=== PATIENT | female | born 1970 | race Caucasian/White ===

== ENCOUNTER → 2016-10-17 | Outpatient (CLI) | payer BC | LOC: MW.LAB 12:27 | PROVIDERS: ATTEND Internal Medicine | DX: I12.9 Hypertensive chronic kidney disease with stage 1 through stage 4 chronic kidney disease, or unspecified chronic kidney disease (principal); N18.3 Chronic kidney disease, stage 3 (moderate); D63.1 Anemia in chronic kidney disease; R80.9 Proteinuria, unspecified | CPT/HCPCS: 36415; 80069; 81001; 82570; 82728; 83550; 84156; 85025 ==

== ENCOUNTER 2017-07-10 06:47 | Emergency (ER) | payer BC ==
[2017-07-10 17:45] VITALS: BP 138/86
--- NOTE | 2017-07-10 18:19 | CR ---
EXAMINATION: Portable chest radiograph. HISTORY: Chest pain. FINDINGS: The trachea is midline. The cardiomediastinal silhouette is within normal limits. No pulmonary infilt rates, effusions or pneumothorax. Osseous structures appear unremarkable. IMPRESSION: No acute cardiopulmonary process.
== END 2017-07-10 09:21 | disposition home or self-care (01) ==
LOC: MW.ED 06:47
DX: R07.89 Other chest pain (principal); R10.9 Unspecified abdominal pain; I10 Essential (primary) hypertension; E11.9 Type 2 diabetes mellitus without complications; E78.00 Pure hypercholesterolemia, unspecified; Z79.4 Long term (current) use of insulin; Z79.82 Long term (current) use of aspirin; Z79.899 Other long term (current) drug therapy; Z87.891 Personal history of nicotine dependence; Z91.19 Patient's noncompliance with other medical treatment and regimen
CPT/HCPCS: 36415; 71010; 71010-26; 80053; 81001; 82009; 82553; 82803; 84484; 85025; 85379; 85610; 96361; 96374; 99283; 99285-25

== ENCOUNTER 2017-07-10 13:58 | Emergency (ER) | payer BC ==
[2017-07-10 14:14] VITALS: BP 133/98
--- NOTE | 2017-07-10 17:38 | EDM.PDOC ---
ED HPI GENERAL MEDICAL PROBLEM - General Chief Complaint: Abdominal Pain Stated Complaint: ABDOMINAL PAIN Time Seen by Provider: 07/10/17 14:10 - History of Present Illness INITIAL COMMENTS - FREE TEXT/NARRATIVE: HISTORY AND PHYSICAL: History of present illness: Patient's 47-year-old female was seen earlier today with a variety of nonspecific complaints including atypical chest pain she was discharged and referred to diabetic clinic in which they established a mechanism to facilitate requiring insulin for her diabetes up till now she's been medically noncompliant that she attributes to financial duress she returns now requesting pain medicine she again has a variety of nonspecific complaints and will shift from 1 system to another during discourse. Is been no fever chills nausea vomiting or other concern Review of systems: As per history of present illness and below otherwise all systems reviewed and negative. Past medical history: As per history of present illness and as reviewed below otherwise noncontributory. Surgical history: As per history of present illness and as reviewed below otherwise noncontributory. Social history: No reported history of drug or alcohol abuse. Family history: As per history of present illness and as reviewed below otherwise noncontributory. Physical exam: HEENT: Atraumatic, normocephalic, pupils reactive, negative for conjunctival pallor or scleral icterus, mucous membranes moist, throat clear, neck supple, nontender, trachea midline. Lungs: Clear to auscultation, breath sounds equal bilaterally, chest nontender. Heart: S1S2, regular, negative for clicks, rubs, or JVD. Abdomen: Soft, nondistended, nontender. Negative for masses or hepatosplenomegaly. Negative for costovertebral tenderness. Pelvis: Stable nontender. Genitourinary: Deferred. Rectal: Deferred. Extremities: Atraumatic, negative for cords or calf pain. Neurovascular unremarkable. Neuro: Awake, alert, oriented. Cranial nerves II through XII unremarkable. Cerebellum unremarkable. Motor and sensory unremarkable throughout. Exam nonfocal. Diagnostics: None Therapeutics: None Impression: #1 history of atypical chest pain #2 nonspecific abdominal pain #3 medical noncompliance #4 history of diabetes Definitive disposition and diagnosis as appropriate pending reevaluation and review of above. Abdominal Pain Pain Score (Numeric/FACES): 10 - Related Data Allergies Allergy/AdvReac Type Severity Reaction Status Date / Time No Known Allergies Allergy Verified 07/10/17 14:11 Home Meds: Home Meds Insulin Lispro [Humalog Kwikpen U-100] 20 units SUBCUT TIDAC 10/23/13 [History] Insulin Glargine,Hum.Rec.Anlog [Rennyuhali Sampsonostar] 50 unit SUBCUT BID 05/31/16 [ History] Lisinopril 20 mg PO DAILY 05/31/16 [History] Pravastatin Sodium 80 mg PO BEDTIME 05/31/16 [History] Aspirin [Sruthi Chewable] 81 mg PO Q2D@0800 09/06/16 [History] Gemfibrozil [Lopid] 600 mg PO BIDMEALS 09/06/16 [History] Glimepiride [Amaryl] 4 mg PO WITHBREAKFAST 09/06/16 [History] Levothyroxine [Levothyroxine] 175 mcg PO ACBREAKFAST 09/06/16 [History] [place]-3/DHA/Epa/Fish Oil [[place]-3 Fish Oil 1,000 MG Sfgl] 2 gm PO BID 09/06/16 [ History] Venlafaxine [Effexor XR] 75 mg PO DAILY 09/06/16 [History] traZODone 50 mg PO DAILY PRN 09/06/16 [History] Past Medical History HEENT History: Reports: Impaired Vision Cardiovascular History: Reports: High Cholesterol, Hypertension, Other (See Below) Other Cardiovascular History: SVT Gastrointestinal History: Reports: Diverticulosis, Pancreatitis Genitourinary History: Reports: Renal Disease, Other (See Below) Other Genitourinary History: 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: Musculoskeletal History: Reports: Arthritis Neurological History: Reports: Other (See Below) Other Neuro History: on and off headaches Psychiatric History: Reports: Anxiety, Depression Other Psychiatric History: January 01 2016 Endocrine/Metabolic History: Reports: Diabetes, Type II Hematologic History: Reports: Anemia - Infectious Disease History Infectious Disease History: Reports: Chicken Pox - Past Surgical History Female Surgical History: Reports: Section, Other (See Below) Social & Family History - Family History Family Medical History: Noncontributory HEENT: Reports: Impaired Vision Cardiac: Reports: CAD, Hypertension OBGYN: Reports: Endocrine/Metabolic: Reports: Diabetes, type II Oncologic: Reports: Other (See Below) Other Oncologic Family History: cant remember what type of cancer - Tobacco Use Smoking Status *Q: Former Smoker Years of Tobacco use: 15 Used Tobacco, but Quit: No Second Hand Smoke Exposure: No - Caffeine Use Caffeine Use: Reports: None - Alcohol Use Days Per Week of Alcohol Use: 0 - Recreational Drug Use Recreational Drug Use: No ED ROS GENERAL - Review of Systems Review Of Systems: ROS reveals no pertinent complaints other than HPI. ED EXAM, GENERAL - Physical Exam Exam: See Below (See dictation) Course - Vital Signs Last Recorded V/S: Last Vital Signs Temp 36.6 C 07/10/17 14:11 Pulse 93 07/10/17 14:11 Resp 18 07/10/17 14:11 BP 133/98 H 07/10/17 14:11 Pulse Ox 97 07/10/17 14:11 Departure - Departure Time of Disposition: 14:16 Disposition: Home, Self-Care 01 Condition: Good Clinical Impression: Atypical chest pain, Abdominal pain, Medical non-compliance, History of diabetes mellitus - Discharge Information Referrals: Haris Plaza MD [Primary Care Provider] - Additional Instructions: The following information is given to patients seen in the emergency department who are being discharged to home. This information is to outline your options for follow-up care. We provide all patients seen in our emergency department with a follow-up referral. The need for follow-up, as well as the timing and circumstances, are variable depending upon the specifics of your emergency department visit. If you don't have a primary care physician on staff, we will provide you with a referral. We always advise you to contact your personal physician following an emergency department visit to inform them of the circumstance of the visit and for follow-up with them and/or the need for any referrals to a consulting specialist. The emergency department will also refer you to a specialist when appropriate. This referral assures that you have the opportunity for followup care with a specialist. All of these measure are taken in an effort to provide you with optimal care, which includes your followup. Under all circumstances we always encourage you to contact your private physician who remains a resource for coordinating your care. When calling for followup care, please make the office aware that this follow-up is from your recent emergency room visit. If for any reason you are refused follow-up, please contact the [facility] emergency department at and asked to speak to the emergency department charge nurse. [facility] [address], [place] [address] [facility] Professional [facility] [address] [place] [address], [address] [place] [address] Schedule routine appointments above with general medical clinic and general surgery follow-up pain clinic as discussed return as needed as discussed
[2017-07-11 14:24] LABS: CHLORIDE,CL 90 mmol/L (98-110)
[2017-07-11 14:26] LABS: SODIUM,NA 123 mmol/L (136-146)
== END 2017-07-10 14:32 | disposition home or self-care (01) ==
LOC: MW.ED 13:58
DX: R07.89 Other chest pain (principal); R10.9 Unspecified abdominal pain; I10 Essential (primary) hypertension; E11.9 Type 2 diabetes mellitus without complications; E78.00 Pure hypercholesterolemia, unspecified; Z79.4 Long term (current) use of insulin; Z79.82 Long term (current) use of aspirin; Z79.899 Other long term (current) drug therapy; Z87.891 Personal history of nicotine dependence; Z91.19 Patient's noncompliance with other medical treatment and regimen
CPT/HCPCS: 36415; 80053; 81001; 82009; 82553; 82803; 84484; 85025; 85379; 85610; 99283

== ENCOUNTER 2019-03-27 11:12 | Emergency (ER) | payer BC ==
[2019-03-27] MEDS ORDERED: Sodium Chloride 0.9% 1,000 ML IV ONE (11:21)
[2019-03-27] MEDS ORDERED: Sodium Chloride 0.9% 10 ML Syringe FLUSH PRN (11:21)
[2019-03-27] MEDS ORDERED: Sodium Chloride 0.9% 2.5 ML Syringe FLUSH PRN (11:21)
--- NOTE | 2019-03-27 11:22 | EDM.PDOC ---
ED HPI GENERAL MEDICAL PROBLEM - General Chief Complaint: Abdominal Pain Stated Complaint: ABD PAIN Time Seen by Provider: 03/27/19 11:22 Source of Information: Reports: Patient History Limitations: Reports: No Limitations - History of Present Illness INITIAL COMMENTS - FREE TEXT/NARRATIVE: HISTORY AND PHYSICAL: History of present illness: Patient is a 48-year-old female presents to the ED with complaint of epigastric abdominal pain. She states it started this morning after she had bent over to pick something up. She states she since has been feeling anxious like she is having a panic attack. She denies chest pain, shortness of breath, nausea, vomiting, diarrhea. She feels like it might be related to her thyroid. Past medical history significant for hypothyroidism, hypertension, hyperlipidemia, type 2 diabetes. Review of systems: As per history of present illness and below otherwise all systems reviewed and negative. Past medical history: As per history of present illness and as reviewed below otherwise noncontributory. Surgical history: As per history of present illness and as reviewed below otherwise noncontributory. Social history: No reported history of drug or alcohol abuse. Family history: As per history of present illness and as reviewed below otherwise noncontributory. Physical exam: General: Patient sitting comfortably in no acute distress and nontoxic appearing HEENT: Atraumatic, normocephalic, pupils reactive, negative for conjunctival pallor or scleral icterus, mucous membranes moist, throat clear, neck supple, nontender, trachea midline. No meningeal signs. Lungs: Clear to auscultation, breath sounds equal bilaterally, chest nontender. Heart: S1S2, regular, negative for clicks, rubs, or overt murmur. Abdomen: Epigastric and RUQ tenderness to palpation. suprapubic tenderness to palpation. Soft, nondistended. Negative for masses or hepatosplenomegaly. Negative for costovertebral tenderness. No rigidity, rebound, guarding. Pelvis: Stable nontender. Genitourinary: Deferred. Rectal: Deferred. Extremities: Atraumatic, negative for cords or calf pain. Neurovascular unremarkable. Neuro: Awake, alert, oriented. Cranial nerves II through XII unremarkable. Cerebellum unremarkable. Motor and sensory unremarkable throughout. Exam nonfocal. Notes: After labs and RUQ US, patient states her pain is more lower abdominal than upper Diagnostics: CBC, CMP, troponin, PT/INR, EKG, CXR Therapeutics: 1L NS IV GI cocktail Prescriptions: Impression: abdominal pain, UTI Plan: Drink plenty of fluids and take antibiotic as instructed Follow up with primary care provider Return to ED as needed as discussed Definitive disposition and diagnosis as appropriate pending reevaluation and review of above. Epigastric Pain Score (Numeric/FACES): 6 - Related Data Allergies Allergy/AdvReac Type Severity Reaction Status Date / Time No Known Allergies Allergy Verified 03/27/19 11:19 Home Meds: Home Meds Insulin Lispro [Humalog Kwikpen U-100] 20 units SUBCUT TIDAC 10/23/13 [History] Insulin Glargine,Hum.Rec.Anlog [Toujeo Solostar] 50 unit SUBCUT BID 05/31/16 [ History] Pravastatin Sodium 80 mg PO BEDTIME 05/31/16 [History] Glimepiride [Amaryl] 4 mg PO WITHBREAKFAST 09/06/16 [History] Levothyroxine 175 mcg PO ACBREAKFAST 09/06/16 [History] Nitrofurantoin Monohyd/M-Cryst [Macrobid 100 mg Capsule] 100 mg PO BID 7 Days # 14 capsule 03/27/19 [Rx] Past Medical History HEENT History: Reports: Impaired Vision Cardiovascular History: Reports: High Cholesterol, Hypertension, Other (See Below) Other Cardiovascular History: SVT Gastrointestinal History: Reports: Diverticulosis, Pancreatitis Genitourinary History: Reports: Renal Disease, Other (See Below) Other Genitourinary History: 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: Musculoskeletal History: Reports: Arthritis Neurological History: Reports: Other (See Below) Other Neuro History: on and off headaches Psychiatric History: Reports: Anxiety, Depression Other Psychiatric History: January 01 2016 Endocrine/Metabolic History: Reports: Diabetes, Type II Hematologic History: Reports: Anemia - Infectious Disease History Infectious Disease History: Reports: Chicken Pox - Past Surgical History Female Surgical History: Reports: Section, Other (See Below) Social & Family History - Family History Family Medical History: Noncontributory HEENT: Reports: Impaired Vision Cardiac: Reports: CAD, Hypertension OBGYN: Reports: Endocrine/Metabolic: Reports: Diabetes, type II Oncologic: Reports: Other (See Below) Other Oncologic Family History: cant remember what type of cancer - Caffeine Use Caffeine Use: Reports: None ED ROS GENERAL - Review of Systems Review Of Systems: ROS reveals no pertinent complaints other than HPI. ED EXAM, GI/ABD - Physical Exam Exam: See Below (see dictation) Course - Vital Signs Last Recorded V/S: Last Vital Signs Temp 98.7 F 03/27/19 11:22 Pulse 74 03/27/19 13:10 Resp 18 03/27/19 13:10 BP 143/92 H 03/27/19 13:10 Pulse Ox 100 03/27/19 13:10 - Orders/Labs/Meds Orders: Active Orders 24 hr Category Date Time Status Cardiac Monitoring [RC] . DIRECTED Care 03/27/19 11:21 Active EKG Documentation Completion [RC] STAT Care 03/27/19 11:21 Active Sodium Chloride 0.9% [Saline Flush] Med 03/27/19 11:21 Active 10 ml FLUSH ASDIRECTED PRN Sodium Chloride 0.9% [Saline Flush] Med 03/27/19 11:21 Active 2.5 ml FLUSH ASDIRECTED PRN Saline Lock Insert [OM.PC] Stat Oth 03/27/19 11:21 Ordered Medication Orders Sodium Chloride (Saline Flush) 10 ml FLUSH ASDIRECTED PRN PRN Reason: Keep Vein Open Sodium Chloride (Saline Flush) 2.5 ml FLUSH ASDIRECTED PRN PRN Reason: Keep Vein Open Labs: Laboratory Tests 03/27/19 03/27/19 03/27/19 Range/Units 11:26 11:26 11:26 WBC 7.35 (4.0-11.0) K/uL RBC 3.20 L (4.30-5.90) M/uL Hgb 9.7 L (12.0-16.0) g/dL Hct 28.7 L (36.0-46.0) % MCV 89.7 (80.0-98.0) fL MCH 30.3 (27.0-32.0) pg MCHC 33.8 (31.0-37.0) g/dL RDW Std Deviation 48.1 (28.0-62.0) fl RDW Coeff of Carine 15 (11.0-15.0) % Plt Count 187 (150-400) K/uL MPV 10.50 (7.40-12.00) fL Neut % (Auto) 67.1 (48.0-80.0) % Lymph % (Auto) 24.1 (16.0-40.0) % Dare % (Auto) 5.3 (0.0-15.0) % Eos % (Auto) 3.4 (0.0-7.0) % Baso % (Auto) 0.1 (0.0-1.5) % Neut # (Auto) 4.9 (1.4-5.7) K/uL Lymph # (Auto) 1.8 (0.6-2.4) K/uL Dare # (Auto) 0.4 (0.0-0.8) K/uL Eos # (Auto) 0.3 (0.0-0.7) K/uL Baso # (Auto) 0.0 (0.0-0.1) K/uL Nucleated RBC % 0.0 /100WBC Nucleated RBCs # 0 K/uL INR 1.03 Sodium 140 (136-145) mmol/L Potassium 4.0 (3.5-5.1) mmol/L Chloride 104 (98-107) mmol/L Carbon Dioxide 24.2 (21.0-32.0) mmol/L BUN 47 H (7.0-18.0) mg/dL Creatinine 2.9 H (0.6-1.0) mg/dL Est Cr Clr Drug Dosing 26.21 mL/min Estimated GFR (MDRD) 17.5 ml/min Glucose 129 H (74-106) mg/dL Calcium 9.4 (8.5-10.1) mg/dL Total Bilirubin 0.3 (0.2-1.0) mg/dL AST 44 H (15-37) IU/L ALT 74 H (14-63) IU/L Alkaline Phosphatase 49 (46-116) U/L Troponin I < 0.050 (0.000-0.056) ng/mL Total Protein 6.8 (6.4-8.2) g/dL Albumin 3.3 L (3.4-5.0) g/dL Globulin 3.5 (2.6-4.0) g/dL Albumin/Globulin Ratio 0.9 (0.9-1.6) Lipase 124 (73-393) U/L TSH 3rd Generation (0.36-3.74) uIU/mL Urine Color Urine Appearance Urine pH (5.0-8.0) Ur Specific Sawyer (1.001-1.035) Urine Protein (NEGATIVE) mg/dL Urine Glucose (UA) (NEGATIVE) mg/dL Urine Ketones (NEGATIVE) mg/dL Urine Occult Blood (NEGATIVE) Urine Nitrite (NEGATIVE) Urine Bilirubin (NEGATIVE) Urine Urobilinogen (<2.0) EU/dL Ur Leukocyte Esterase (NEGATIVE) Urine RBC (0-2/HPF) Urine WBC (0-5/HPF) Ur Epithelial Cells (NONE-FEW) Urine Bacteria (NEGATIVE) 03/27/19 03/27/19 Range/Units 11:26 11:45 WBC (4.0-11.0) K/uL RBC (4.30-5.90) M/uL Hgb (12.0-16.0) g/dL Hct (36.0-46.0) % MCV (80.0-98.0) fL MCH (27.0-32.0) pg MCHC (31.0-37.0) g/dL RDW Std Deviation (28.0-62.0) fl RDW Coeff of Carine (11.0-15.0) % Plt Count (150-400) K/uL MPV (7.40-12.00) fL Neut % (Auto) (48.0-80.0) % Lymph % (Auto) (16.0-40.0) % Dare % (Auto) (0.0-15.0) % Eos % (Auto) (0.0-7.0) % Baso % (Auto) (0.0-1.5) % Neut # (Auto) (1.4-5.7) K/uL Lymph # (Auto) (0.6-2.4) K/uL Dare # (Auto) (0.0-0.8) K/uL Eos # (Auto) (0.0-0.7) K/uL Baso # (Auto) (0.0-0.1) K/uL Nucleated RBC % /100WBC Nucleated RBCs # K/uL INR Sodium (136-145) mmol/L Potassium (3.5-5.1) mmol/L Chloride (98-107) mmol/L Carbon Dioxide (21.0-32.0) mmol/L BUN (7.0-18.0) mg/dL Creatinine (0.6-1.0) mg/dL Est Cr Clr Drug Dosing mL/min Estimated GFR (MDRD) ml/min Glucose (74-106) mg/dL Calcium (8.5-10.1) mg/dL Total Bilirubin (0.2-1.0) mg/dL AST (15-37) IU/L ALT (14-63) IU/L Alkaline Phosphatase (46-116) U/L Troponin I (0.000-0.056) ng/mL Total Protein (6.4-8.2) g/dL Albumin (3.4-5.0) g/dL Globulin (2.6-4.0) g/dL Albumin/Globulin Ratio (0.9-1.6) Lipase (73-393) U/L TSH 3rd Generation 3.37 (0.36-3.74) uIU/mL Urine Color YELLOW Urine Appearance CLEAR Urine pH 5.5 (5.0-8.0) Ur Specific Sawyer 1.025 (1.001-1.035) Urine Protein >=300 H (NEGATIVE) mg/dL Urine Glucose (UA) 100 H (NEGATIVE) mg/dL Urine Ketones NEGATIVE (NEGATIVE) mg/dL Urine Occult Blood LARGE H (NEGATIVE) Urine Nitrite NEGATIVE (NEGATIVE) Urine Bilirubin NEGATIVE (NEGATIVE) Urine Urobilinogen 0.2 (<2.0) EU/dL Ur Leukocyte Esterase NEGATIVE (NEGATIVE) Urine RBC 5-10 (0-2/HPF) Urine WBC 10-15 (0-5/HPF) Ur Epithelial Cells MODERATE (NONE-FEW) Urine Bacteria 1+ H (NEGATIVE) Meds: Medications Generic Name Dose Route Start Last Admin Trade Name Freq PRN Reason Stop Dose Admin Sodium Chloride 10 ml 03/27/19 11:21 Saline Flush FLUSH ASDIRECTED PRN Keep Vein Open Sodium Chloride 2.5 ml 03/27/19 11:21 Saline Flush FLUSH ASDIRECTED PRN Keep Vein Open Discontinued Medications Generic Name Dose Route Start Last Admin Trade Name Freq PRN Reason Stop Dose Admin Al Hydroxide/Mg Hydroxide 15 0 ml 03/27/19 11:37 03/27/19 11:51 ml/ Lidocaine HCl 5 ml PO 03/27/19 11:38 20 each ONETIME ONE Administration Sodium Chloride 1,000 mls @ 999 mls/hr 03/27/19 11:21 03/27/19 11:36 Normal Saline IV 03/27/19 12:21 999 mls/hr BOLUS ONE Administration Departure - Departure Time of Disposition: 13:20 Disposition: Home, Self-Care 01 Condition: Good Clinical Impression: Abdominal pain, UTI (urinary tract infection) - Discharge Information Referrals: PCP,Unobtain [Primary Care Provider] - Forms: ED Department Discharge Additional Instructions: The following information is given to patients seen in the emergency department who are being discharged to home. This information is to outline your options for follow-up care. We provide all patients seen in our emergency department with a follow-up referral. The need for follow-up, as well as the timing and circumstances, are variable depending upon the specifics of your emergency department visit. If you don't have a primary care physician on staff, we will provide you with a referral. We always advise you to contact your personal physician following an emergency department visit to inform them of the circumstance of the visit and for follow-up with them and/or the need for any referrals to a consulting specialist. The emergency department will also refer you to a specialist when appropriate. This referral assures that you have the opportunity for follow-up care with a specialist. All of these measure are taken in an effort to provide you with optimal care, which includes your follow-up. Under all circumstances we always encourage you to contact your private physician who remains a resource for coordinating your care. When calling for follow-up care, please make the office aware that this follow-up is from your recent emergency room visit. If for any reason you are refused follow-up, please contact the Emergency Department at and asked to speak to the emergency department charge nurse. [facility] [address] [place] [id number] [facility] [address] [place] [id number] Drink plenty of fluids and take antibiotic as instructed Follow up with primary care provider Return to ED as needed as discussed - My Orders Last 24 Hours: My Active Orders 03/27/19 11:21 Cardiac Monitoring [RC] . DIRECTED EKG Documentation Completion [RC] STAT Sodium Chloride 0.9% [Saline Flush] 10 ml FLUSH ASDIRECTED PRN Sodium Chloride 0.9% [Saline Flush] 2.5 ml FLUSH ASDIRECTED PRN Saline Lock Insert [OM.PC] Stat - Assessment/Plan Last 24 Hours: My Active Orders 03/27/19 11:21 Cardiac Monitoring [RC] . DIRECTED EKG Documentation Completion [RC] STAT Sodium Chloride 0.9% [Saline Flush] 10 ml FLUSH ASDIRECTED PRN Sodium Chloride 0.9% [Saline Flush] 2.5 ml FLUSH ASDIRECTED PRN Saline Lock Insert [OM.PC] Stat
[2019-03-27] MEDS ORDERED: Alum Hydrox/Mag Hydrox/Simeth 15 ML, Lidocaine 2% 5 ML PO ONE ×2 (11:37)
--- NOTE | 2019-03-27 11:53 | CR ---
Chest: Portable view of the chest was obtained. Comparison: Prior chest x-ray of 07/10/17. Heart size and mediastinum are within normal limits for portable technique. Lungs are clear. Degenerative endplate spurring is noted within the spine. No acute osseous abnormality is identified. Impression: 1. Nothing acute is appreciated on portable chest x-ray. Diagnostic code #1 MTDD
[2019-03-27 12:06] LABS: BLOOD UREA NITROGEN,BUN 47 mg/dL (7.0-18.0); CARBON DIOXIDE,CO2 24.2 mmol/L (21.0-32.0); CHLORIDE,CL 104 mmol/L (98-107); GLUCOSE RANDOM 129 mg/dL (74-106); LIPASE 124 U/L (73-393); SODIUM,NA 140 mmol/L (136-145)
--- NOTE | 2019-03-27 13:13 | US ---
Limited abdominal ultrasound: Multiple real-time images of the upper right abdomen were obtained. Comparison: Prior CT abdomen and pelvis exam of 05/31/16. Liver is somewhat echogenic as compared to the kidney most likely due to fatty infiltration. No focal abnormality is appreciated within the liver. Previous cholecystectomy is noted. No biliary duct dilatation is seen. Right kidney shows no hydronephrosis or mass. Right kidney has a length of 13.4 cm. Pancreas felt to be within normal limits as visualized. Impression: 1. Probable fatty infiltration within the liver. 2. Previous cholecystectomy with no biliary duct dilatation. 3. No additional abnormality is seen on other portions of the right upper quadrant abdominal ultrasound. Diagnostic code #3 MTDD
[2019-03-27 13:29] VITALS: BP 129/74
== END 2019-03-27 13:29 | disposition home or self-care (01) ==
LOC: MW.ED 11:12
DX: N39.0 Urinary tract infection, site not specified (principal); E11.9 Type 2 diabetes mellitus without complications; I10 Essential (primary) hypertension; E78.00 Pure hypercholesterolemia, unspecified; E03.9 Hypothyroidism, unspecified; Z79.4 Long term (current) use of insulin; Z79.899 Other long term (current) drug therapy
CPT/HCPCS: 36415; 71045; 76705; 80053; 81001; 83690; 84443; 84484; 85025; 85610; 96360; 99284; A9270; J7040

== ENCOUNTER 2019-08-03 16:10 | Inpatient (IN) | payer BC, OTHER ==
[2019-08-03] MEDS ORDERED: Ondansetron 4 MG/2 ML SDV IVPUSH ONE (16:47)
[2019-08-03] MEDS ORDERED: Morphine 4 MG/ML Syringe IVPUSH ONE (16:47)
[2019-08-03 17:19] LABS: CARBON DIOXIDE,CO2 17.6 mmol/L (21.0-32.0); POTASSIUM,K 3.8 mmol/L (3.5-5.1)
--- NOTE | 2019-08-03 18:19 | EDM.PDOC ---
ED HPI GENERAL MEDICAL PROBLEM - General Chief Complaint: Abdominal Pain Stated Complaint: stomach pain Time Seen by Provider: 08/03/19 17:14 Source of Information: Reports: Patient History Limitations: Reports: No Limitations - History of Present Illness INITIAL COMMENTS - FREE TEXT/NARRATIVE: This 49 year old female is admitted to the ED with a chief complaint of epigastric abdominal pain through to the back. She describes the pain as sharp and stabbing and comes in waves. She also complains of nausea and vomiting. She has a history of pancreatitis with her last episode being two years ago. She denies any alcohol use as a cause of her pancreatitis. Onset: Gradual (over two days that got worse today.) Duration: Waxing/Waning Location: Reports: Abdomen Quality: Reports: Sharp (and through to the back.), Stabbing Severity: Moderate Associated Symptoms: Reports: Nausea/Vomiting mid-abd Pain Score (Numeric/FACES): 10 - Related Data Allergies Allergy/AdvReac Type Severity Reaction Status Date / Time No Known Allergies Allergy Verified 03/27/19 11:19 Home Meds: Home Meds Insulin Lispro [Humalog Kwikpen U-100] 20 units SUBCUT TIDAC 10/23/13 [History] Insulin Glargine,Hum.Rec.Anlog [Toujeo Solostar] 50 unit SUBCUT BID 05/31/16 [ History] Pravastatin Sodium 80 mg PO BEDTIME 05/31/16 [History] Glimepiride [Amaryl] 4 mg PO WITHBREAKFAST 09/06/16 [History] Levothyroxine 175 mcg PO ACBREAKFAST 09/06/16 [History] Nitrofurantoin Monohyd/M-Cryst [Macrobid 100 mg Capsule] 100 mg PO BID 7 Days # 14 capsule 03/27/19 [Rx] Past Medical History HEENT History: Reports: Impaired Vision Cardiovascular History: Reports: High Cholesterol, Hypertension, Other (See Below) Other Cardiovascular History: SVT Gastrointestinal History: Reports: Diverticulosis, Pancreatitis Genitourinary History: Reports: Renal Disease, Other (See Below) Other Genitourinary History: 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: Musculoskeletal History: Reports: Arthritis Neurological History: Reports: Other (See Below) Other Neuro History: on and off headaches Psychiatric History: Reports: Anxiety, Depression Other Psychiatric History: January 01 2016 Endocrine/Metabolic History: Reports: Diabetes, Type II Hematologic History: Reports: Anemia - Infectious Disease History Infectious Disease History: Reports: Chicken Pox - Past Surgical History Female Surgical History: Reports: Section, Other (See Below) Social & Family History - Family History Family Medical History: Noncontributory HEENT: Reports: Impaired Vision Cardiac: Reports: CAD, Hypertension OBGYN: Reports: Endocrine/Metabolic: Reports: Diabetes, type II Oncologic: Reports: Other (See Below) Other Oncologic Family History: cant remember what type of cancer - Tobacco Use Smoking Status *Q: Never Smoker - Caffeine Use Caffeine Use: Reports: None - Recreational Drug Use Recreational Drug Use: No ED ROS GENERAL - Review of Systems Review Of Systems: See Below Constitutional: Reports: No Symptoms HEENT: Reports: No Symptoms Respiratory: Reports: No Symptoms Cardiovascular: Reports: No Symptoms Endocrine: Reports: No Symptoms GI/Abdominal: Reports: Abdominal Pain, Anorexia, Decreased Appetite, Nausea, Vomiting. Denies: Black Stool, Bloody Stool, Constipation, Diarrhea : Reports: No Symptoms Musculoskeletal: Reports: No Symptoms Skin: Reports: No Symptoms Neurological: Reports: No Symptoms ED EXAM, GI/ABD - Physical Exam Exam: See Below Exam Limited By: No Limitations General Appearance: Alert, WD/WN, Moderate Distress (complaining of abdominal pain.) Eyes: Bilateral: Normal Appearance, EOMI Ears: Normal External Exam, Normal Canal, Hearing Grossly Normal, Normal TMs Nose: Normal Inspection, Normal Mucosa, No Blood Throat/Mouth: Normal Inspection, Normal Lips, Normal Teeth, Normal Gums, Normal Oropharynx, Normal Voice, No Airway Compromise Head: Atraumatic, Normocephalic Neck: Normal Inspection, Supple, Non-Tender, Full Range of Motion Respiratory/Chest: No Respiratory Distress, Lungs Clear, Normal Breath Sounds, No Accessory Muscle Use, Chest Non-Tender Cardiovascular: Normal Peripheral Pulses, Regular Rate, Rhythm, No Edema, No Gallop, No JVD, No Murmur, No Rub GI/Abdominal Exam: Normal Bowel Sounds, No Organomegaly, Guarding, Tender ( epigastrim) (Female) Exam: Deferred Rectal (Female) Exam: Normal Exam, Heme - Stool Back Exam: Normal Inspection, Full Range of Motion, NT Extremities: Normal Inspection, Normal Range of Motion, Non-Tender, Normal Capillary Refill Neurological: Alert, Oriented, CN II-XII Intact, Normal Cognition, Normal Gait, Normal Reflexes, No Motor/Sensory Deficits Psychiatric: Normal Affect, Normal Mood Skin Exam: Warm, Dry, Intact, Normal Color, No Rash Lymphatic: No Adenopathy Course - Vital Signs Text/Narrative:: I discussed this case with Dr. Solano at 7:02PM. The patient will be admitted for further evaluation and treatment. The patient agrees with the admission plan. Last Recorded V/S: Last Vital Signs Temp 96.5 F 08/03/19 16:37 Pulse 88 08/03/19 19:05 Resp 15 08/03/19 19:05 BP 125/60 08/03/19 19:05 Pulse Ox 100 08/03/19 19:05 - Orders/Labs/Meds Orders: Active Orders 24 hr Category Date Time Status UA RFX KAYLEE AND CULT IF INDIC [URIN] Stat Lab 08/03/19 16:47 Ordered Sodium Chloride 0.9% [Normal Saline] 1,000 ml Med 08/03/19 18:36 Active IV .Bolus Medication Orders Sodium Chloride (Normal Saline) 1,000 mls @ 1,000 mls/hr IV .Bolus ONE Stop: 08/03/19 19:35 Last Admin: 08/03/19 19:04 Dose: 1,000 mls/hr Labs: Laboratory Tests 08/03/19 08/03/19 08/03/19 Range/Units 16:50 16:50 16:50 WBC 9.11 (4.0-11.0) K/uL RBC 3.23 L (4.30-5.90) M/uL Hgb 9.8 L (12.0-16.0) g/dL Hct 28.1 L (36.0-46.0) % MCV 87.0 (80.0-98.0) fL MCH 30.3 (27.0-32.0) pg MCHC 34.9 (31.0-37.0) g/dL RDW Std Deviation 46.7 (28.0-62.0) fl RDW Coeff of Carine 15 (11.0-15.0) % Plt Count 204 (150-400) K/uL MPV 10.30 (7.40-12.00) fL Neut % (Auto) 80.4 H (48.0-80.0) % Lymph % (Auto) 13.2 L (16.0-40.0) % [place] % (Auto) 4.9 (0.0-15.0) % Eos % (Auto) 1.4 (0.0-7.0) % Baso % (Auto) 0.1 (0.0-1.5) % Neut # (Auto) 7.3 H (1.4-5.7) K/uL Lymph # (Auto) 1.2 (0.6-2.4) K/uL [place] # (Auto) 0.5 (0.0-0.8) K/uL Eos # (Auto) 0.1 (0.0-0.7) K/uL Baso # (Auto) 0.0 (0.0-0.1) K/uL Nucleated RBC % 0.0 /100WBC Nucleated RBCs # 0 K/uL Lactate 1.5 (0.20-2.00) mmol/L Sodium 131 L (136-145) mmol/L Potassium 3.8 (3.5-5.1) mmol/L Chloride 99 (98-107) mmol/L Carbon Dioxide 17.6 L (21.0-32.0) mmol/L BUN 56 H (7.0-18.0) mg/dL Creatinine 3.2 H (0.6-1.0) mg/dL Est Cr Clr Drug Dosing 22.71 mL/min Estimated GFR (MDRD) 15.5 ml/min Glucose 367 H (74-106) mg/dL Calcium 9.0 (8.5-10.1) mg/dL Total Bilirubin 0.3 (0.2-1.0) mg/dL AST 20 (15-37) IU/L ALT 40 (14-63) IU/L Alkaline Phosphatase 50 (46-116) U/L Total Protein 7.5 (6.4-8.2) g/dL Albumin 3.4 (3.4-5.0) g/dL Globulin 4.1 H (2.6-4.0) g/dL Albumin/Globulin Ratio 0.8 L (0.9-1.6) Lipase 3326 H (73-393) U/L Meds: Medications Generic Name Dose Route Start Last Admin Trade Name Freq PRN Reason Stop Dose Admin Sodium Chloride 1,000 mls @ 1,000 mls/hr 08/03/19 18:36 08/03/19 19:04 Normal Saline IV 08/03/19 19:35 1,000 mls/hr .Bolus ONE Administration Discontinued Medications Generic Name Dose Route Start Last Admin Trade Name Freq PRN Reason Stop Dose Admin Morphine Sulfate 4 mg 08/03/19 16:47 08/03/19 16:58 Morphine IVPUSH 08/03/19 16:48 4 mg ONETIME ONE Administration Ondansetron HCl 4 mg 08/03/19 16:47 08/03/19 16:54 Zofran IVPUSH 08/03/19 16:48 4 mg ONETIME ONE Administration Departure - Departure Time of Disposition: 19:17 Disposition: Refer to Observation Condition: Fair Clinical Impression: Chronic renal disease, stage 3, moderately decreased glomerular filtration rate between 30-59 mL/min/1.73 square meter Pancreatitis Qualifiers: Chronicity: acute Pancreatitis type: unspecified pancreatitis type Acute pancreatitis complication: no infection or necrosis Qualified Code(s): K85.90 - Acute pancreatitis without necrosis or infection, unspecified - Discharge Information *PRESCRIPTION DRUG MONITORING PROGRAM REVIEWED*: Yes *COPY OF PRESCRIPTION DRUG MONITORING REPORT IN PATIENT ISAURO: Yes Sepsis Event Note - Evaluation Sepsis Screening Result: Possible Sepsis Risk - Focused Exam Vital Signs: Vital Signs Temp Pulse Resp BP Pulse Ox 08/03/19 19:05 88 15 125/60 100 08/03/19 16:37 96.5 F 93 22 H 156/96 H 100 Date Exam was Performed: 08/03/19 Time Exam was Performed: 19:15 - My Orders Last 24 Hours: My Active Orders 08/03/19 16:47 UA RFX KAYLEE AND CULT IF INDIC [URIN] Stat 08/03/19 18:36 Sodium Chloride 0.9% [Normal Saline] 1,000 ml IV .Bolus - Assessment/Plan Last 24 Hours: My Active Orders 08/03/19 16:47 UA RFX KAYLEE AND CULT IF INDIC [URIN] Stat 08/03/19 18:36 Sodium Chloride 0.9% [Normal Saline] 1,000 ml IV .Bolus
[2019-08-03] MEDS ORDERED: Sodium Chloride 0.9% 1,000 ML IV ONE (18:36)
--- NOTE | 2019-08-03 18:48 | CT ---
CT abdomen and pelvis Technique: Multiple axial sections were obtained from above the dome of the diaphragm inferiorly through the pubic symphysis. Intravenous and oral contrast not utilized. Comparison: No prior CT abdomen or pelvis exam is available. Findings: Visualized lung bases show nothing acute. Multiple small calcifications are seen within the posterior costophrenic angle on the right side possibly due to multiple small granulomas or other high density areas within the posterior costophrenic angle. These are most likely chronic. Spleen appears within normal limits. Liver is generous in size and shows diffuse fatty infiltration. Adrenal glands show no nodule. Inflammatory change is noted around the pancreas. Surgical clips are seen from prior cholecystectomy. Kidneys show no abnormal calcifications. No ureteral dilatation or ureteral stone is seen. Aorta shows atherosclerotic change without aneurysm. No retroperitoneal adenopathy is seen. Appendix is seen which is normal in size. Lower anterior abdominal wall hernia is seen containing a loop of small bowel. No small bowel dilatation is seen. No pelvic mass or adenopathy is seen. Uterus is slightly generous in size. Cyst is noted within the left ovary measuring 3.5 cm. Bone window settings were reviewed which shows spondylolytic defects at L5-S1 with disc space narrowing and mild spondylolisthesis. Scattered disc space narrowing is noted within the spine with scattered endplate osteophytes. No acute osseous finding is seen. Impression: 1. Anterior lower abdominal wall hernia containing a loop of nondilated small bowel. 2. Hepatomegaly and fatty infiltration within the liver. 3. Inflammatory change around the pancreas which likely represents pancreatitis. Please correlate with enzyme studies. 4. Other findings believed to be incidental and nonacute as described above. Diagnostic code #3 This report was dictated in [place] Standard Time
[2019-08-03] MEDS ORDERED: Morphine 2 MG/ML Syringe IVPUSH ONE (21:35)
[2019-08-03] MEDS ORDERED: Insulin Detemir 100 Units/ML 3 ML Pen SUBCUT ONE ×2 (21:57→22:16)
[2019-08-03] MEDS: Lactated Ringers 1,000 ML IV SCH (22:04)
--- NOTE | 2019-08-03 22:44 | PCM.HP.2 ---
H&P History of Present Illness - General Date of Service: 08/03/19 Admit Problem/Dx: Admission Diagnosis/Problem Admission Diagnosis/Problem Acute pancreatitis Source of Information: Patient - History of Present Illness Initial Comments - Free Text/Narative: This 49 year old female with PMH of CKD, DM, HTN, is admitted to the ED with a chief complaint of epigastric abdominal pain radiating to her back. Pain is sharp in nature and and has been getting worse for last 2-3 days. She also complains of nausea and vomiting. Patient has a history of pancreatitis with her last episode being two years ago. Denied any alcohol use, NSAID use. In the ER patient was found to have elevated lipase, CT scan showed findings suggestive of pancreatitis. Patient is being admitted for management of pancreatitis. Onset of Symptoms: Reports: Gradual Duration of Symptoms: Reports: Day(s): Quality: Reports: Sharp Improves with: Reports: None Worsens with: Reports: Eating, Movement Associated Symptoms: Reports: Nausea/Vomiting. Denies: Chest Pain, Cough, cough w sputum mid-abd Pain Score (Numeric/FACES): 7 - Related Data Allergies/Adverse Reactions: Allergies Allergy/AdvReac Type Severity Reaction Status Date / Time No Known Allergies Allergy Verified 08/03/19 20:31 Home Medications: Home Meds Levothyroxine 275 mcg PO ACBREAKFAST 09/06/16 [History] Fenofibrate Nanocrystallized [Tricor] 200 mg PO DAILY 08/04/19 [History] Insulin NPH/Insulin Reg,Human [Novolin 70-30] 100 unit SUBCUT BID 08/04/19 [ History] amLODIPine [Norvasc] 5 mg PO BEDTIME 08/04/19 [History] atorvaSTATin [Lipitor] 40 mg PO DAILY 08/04/19 [History] glipiZIDE [Glucotrol] 5 mg PO BEDTIME 08/04/19 [History] glipiZIDE [Glucotrol] 10 mg PO QAM 08/04/19 [History] Past Medical History HEENT History: Reports: Impaired Vision Cardiovascular History: Reports: High Cholesterol, Hypertension, Other (See Below) Other Cardiovascular History: SVT Gastrointestinal History: Reports: Diverticulosis, Pancreatitis Genitourinary History: Reports: Renal Disease, Other (See Below) Other Genitourinary History: 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 [employer]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: Musculoskeletal History: Reports: Arthritis Neurological History: Reports: Other (See Below) Other Neuro History: on and off headaches Psychiatric History: Reports: Anxiety, Depression Other Psychiatric History: January 01 2016 Endocrine/Metabolic History: Reports: Diabetes, Type II Hematologic History: Reports: Anemia - Infectious Disease History Infectious Disease History: Reports: Chicken Pox - Past Surgical History Female Surgical History: Reports: Section, Other (See Below) Social & Family History - Family History Family Medical History: Noncontributory HEENT: Reports: Impaired Vision Cardiac: Reports: CAD, Hypertension OBGYN: Reports: Endocrine/Metabolic: Reports: Diabetes, type II Oncologic: Reports: Other (See Below) Other Oncologic Family History: cant remember what type of cancer - Tobacco Use Smoking Status *Q: Former Smoker Years of Tobacco use: 20 Used Tobacco, but Quit: Yes Month/Year Tobacco Last Used: one year ago - Caffeine Use Caffeine Use: Reports: Coffee, Tea - Recreational Drug Use Recreational Drug Use: No H&P Review of Systems - Review of Systems: Review Of Systems: See Below General: Reports: Weakness, Fatigue. Denies: Fever, Chills, Malaise HEENT: Denies: Dysphasia, Ear Pain, Eye Pain Pulmonary: Denies: Shortness of Breath, Wheezing, Pleuritic Chest Pain Cardiovascular: Denies: Chest Pain, Palpitations, Dyspnea on Exertion Gastrointestinal: Reports: Abdominal Pain, Anorexia, Decreased Appetite, Nausea , Vomiting. Denies: Black Stool, Bloody Stool, Constipation, Diarrhea, Difficulty Swallowing, Stool Incontinence Genitourinary: Denies: Dysuria, Frequency, Burning Musculoskeletal: Denies: Neck Pain, Shoulder Pain, Arm Pain Skin: Denies: Cyanosis, Jaundice, Mottled Psychiatric: Reports: Depression. Denies: Confusion, Hallucinations, Suicidal Ideation Neurological: Reports: Headache. Denies: Confusion, Dizziness Hematologic/Lymphatic: Reports: Anemia Exam - Exam Exam: See Below - Vital Signs Vital Signs: Last Vital Signs Temp 36.2 C 08/03/19 20: Pulse 87 08/03/19 20:02 Resp 18 08/03/19 20:02 BP 129/81 08/03/19 20:02 Pulse Ox 100 08/03/19 20:02 Weight: 107 kg - Exam General: Alert, Oriented HEENT: Conjunctiva Clear, Mucosa Moist & [place], Nares Patent Neck: Supple, Trachea Midline Lungs: Clear to Auscultation, Normal Respiratory Effort Cardiovascular: Regular Rate, Regular Rhythm GI/Abdominal Exam: Normal Bowel Sounds, Soft, Guarding, Tender. No: Non-Tender , No Organomegaly, Rigid, Splenomegaly - Patient Data Lab Results Last 24 hrs: Laboratory Results - last 24 hr 08/03/19 08/03/19 08/03/19 Range/Units 16:50 16:50 16:50 WBC 9.11 (4.0-11.0) K/uL RBC 3.23 L (4.30-5.90) M/uL Hgb 9.8 L (12.0-16.0) g/dL Hct 28.1 L (36.0-46.0) % MCV 87.0 (80.0-98.0) fL MCH 30.3 (27.0-32.0) pg MCHC 34.9 (31.0-37.0) g/dL RDW Std Deviation 46.7 (28.0-62.0) fl RDW Coeff of Carine 15 (11.0-15.0) % Plt Count 204 (150-400) K/uL MPV 10.30 (7.40-12.00) fL Neut % (Auto) 80.4 H (48.0-80.0) % Lymph % (Auto) 13.2 L (16.0-40.0) % [place] % (Auto) 4.9 (0.0-15.0) % Eos % (Auto) 1.4 (0.0-7.0) % Baso % (Auto) 0.1 (0.0-1.5) % Neut # (Auto) 7.3 H (1.4-5.7) K/uL Lymph # (Auto) 1.2 (0.6-2.4) K/uL [place] # (Auto) 0.5 (0.0-0.8) K/uL Eos # (Auto) 0.1 (0.0-0.7) K/uL Baso # (Auto) 0.0 (0.0-0.1) K/uL Nucleated RBC % 0.0 /100WBC Nucleated RBCs # 0 K/uL Lactate 1.5 (0.20-2.00) mmol/L Sodium 131 L (136-145) mmol/L Potassium 3.8 (3.5-5.1) mmol/L Chloride 99 (98-107) mmol/L Carbon Dioxide 17.6 L (21.0-32.0) mmol/L BUN 56 H (7.0-18.0) mg/dL Creatinine 3.2 H (0.6-1.0) mg/dL Est Cr Clr Drug Dosing 22.71 mL/min Estimated GFR (MDRD) 15.5 ml/min Glucose 367 H (74-106) mg/dL POC Glucose (60-110) mg/dL Calcium 9.0 (8.5-10.1) mg/dL Total Bilirubin 0.3 (0.2-1.0) mg/dL AST 20 (15-37) IU/L ALT 40 (14-63) IU/L Alkaline Phosphatase 50 (46-116) U/L Total Protein 7.5 (6.4-8.2) g/dL Albumin 3.4 (3.4-5.0) g/dL Globulin 4.1 H (2.6-4.0) g/dL Albumin/Globulin Ratio 0.8 L (0.9-1.6) Lipase 3326 H (73-393) U/L Urine Color Urine Appearance Urine pH (5.0-8.0) Ur Specific [place] (1.001-1.035) Urine Protein (NEGATIVE) mg/dL Urine Glucose (UA) (NEGATIVE) mg/dL Urine Ketones (NEGATIVE) mg/dL Urine Occult Blood (NEGATIVE) Urine Nitrite (NEGATIVE) Urine Bilirubin (NEGATIVE) Urine Urobilinogen (<2.0) EU/dL Ur Leukocyte Esterase (NEGATIVE) Urine RBC (0-2/HPF) Urine WBC (0-5/HPF) Ur Epithelial Cells (NONE-FEW) Urine Bacteria (NEGATIVE) 08/03/19 08/03/19 Range/Units 19:45 22:14 WBC (4.0-11.0) K/uL RBC (4.30-5.90) M/uL Hgb (12.0-16.0) g/dL Hct (36.0-46.0) % MCV (80.0-98.0) fL MCH (27.0-32.0) pg MCHC (31.0-37.0) g/dL RDW Std Deviation (28.0-62.0) fl RDW Coeff of Carine (11.0-15.0) % Plt Count (150-400) K/uL MPV (7.40-12.00) fL Neut % (Auto) (48.0-80.0) % Lymph % (Auto) (16.0-40.0) % [place] % (Auto) (0.0-15.0) % Eos % (Auto) (0.0-7.0) % Baso % (Auto) (0.0-1.5) % Neut # (Auto) (1.4-5.7) K/uL Lymph # (Auto) (0.6-2.4) K/uL [place] # (Auto) (0.0-0.8) K/uL Eos # (Auto) (0.0-0.7) K/uL Baso # (Auto) (0.0-0.1) K/uL Nucleated RBC % /100WBC Nucleated RBCs # K/uL Lactate (0.20-2.00) mmol/L Sodium (136-145) mmol/L Potassium (3.5-5.1) mmol/L Chloride (98-107) mmol/L Carbon Dioxide (21.0-32.0) mmol/L BUN (7.0-18.0) mg/dL Creatinine (0.6-1.0) mg/dL Est Cr Clr Drug Dosing mL/min Estimated GFR (MDRD) ml/min Glucose (74-106) mg/dL POC Glucose 229 H (60-110) mg/dL Calcium (8.5-10.1) mg/dL Total Bilirubin (0.2-1.0) mg/dL AST (15-37) IU/L ALT (14-63) IU/L Alkaline Phosphatase (46-116) U/L Total Protein (6.4-8.2) g/dL Albumin (3.4-5.0) g/dL Globulin (2.6-4.0) g/dL Albumin/Globulin Ratio (0.9-1.6) Lipase (73-393) U/L Urine Color YELLOW Urine Appearance SLT CLOUDY Urine pH 6.0 (5.0-8.0) Ur Specific [place] 1.025 (1.001-1.035) Urine Protein >=300 H (NEGATIVE) mg/dL Urine Glucose (UA) >=1000 (NEGATIVE) mg/dL Urine Ketones NEGATIVE (NEGATIVE) mg/dL Urine Occult Blood LARGE H (NEGATIVE) Urine Nitrite NEGATIVE (NEGATIVE) Urine Bilirubin NEGATIVE (NEGATIVE) Urine Urobilinogen 0.2 (<2.0) EU/dL Ur Leukocyte Esterase NEGATIVE (NEGATIVE) Urine RBC 0-3 (0-2/HPF) Urine WBC 0-2 (0-5/HPF) Ur Epithelial Cells FEW (NONE-FEW) Urine Bacteria FEW (NEGATIVE) Result Diagrams: 08/04/19 05:48 08/04/19 05:48 Sepsis Event Note - Evaluation Sepsis Screening Result: Possible Sepsis Risk - Focused Exam Vital Signs: Vital Signs Temp Pulse Resp BP Pulse Ox 08/03/19 20:02 36.2 C 87 18 129/81 100 08/03/19 19:05 88 15 125/60 100 08/03/19 16:37 35.8 C 93 22 H 156/96 H 100 Date Exam was Performed: 08/04/19 Time Exam was Performed: 21:04 - Problem List (1) Chronic renal disease, stage 3, moderately decreased glomerular filtration rate between 30-59 mL/min/1.73 square meter SNOMED Code(s): 352581750 ICD Code: N18.3 - CHRONIC KIDNEY DISEASE, STAGE 3 (MODERATE) Status: Acute Current Visit: Yes (2) Pancreatitis SNOMED Code(s): 32178560 ICD Code: K85.90 - ACUTE PANCREATITIS WITHOUT NECROSIS OR INFECTION, UNSP Status: Acute Current Visit: Yes Qualifiers: Chronicity: acute Pancreatitis type: unspecified pancreatitis type Acute pancreatitis complication: no infection or necrosis Qualified Code(s): K85.90 - Acute pancreatitis without necrosis or infection, unspecified (3) Abdominal pain SNOMED Code(s): 71010392 ICD Code: R10.9 - UNSPECIFIED ABDOMINAL PAIN Status: Acute Current Visit : No (4) Diabetes SNOMED Code(s): 57996850 ICD Code: E11.9 - TYPE 2 DIABETES MELLITUS WITHOUT COMPLICATIONS Status: Acute Current Visit: No Problem List Initiated/Reviewed/Updated: Yes Orders Last 24hrs: Active Orders 24 hr Category Date Time Status Admission Status [Patient Status] [ADT] Stat ADT 08/03/19 19:18 Active Ambulate [RC] PER UNIT ROUTINE Care 08/03/19 21:54 Active Antiembolic Devices [RC] PER UNIT ROUTINE Care 08/03/19 21:54 Active Oxygen Therapy [RC] PRN Care 08/03/19 21:53 Active Telemetry Monitoring [Cardiac Monitoring] [RC] Q8H Care 08/03/19 19:51 Active VTE/DVT Education [RC] PER UNIT ROUTINE Care 08/03/19 21:53 Active Vital Signs [RC] Q4H Care 08/03/19 21:53 Active Nothing per Oral Now Diet [DIET] Diet 08/03/19 Dinner Active BMP [BASIC METABOLIC PANEL,BMP] [CHEM] AM Lab 08/04/19 05:11 Ordered CBC WITH AUTO DIFF [HEME] AM Lab 08/04/19 05:11 Ordered LIPASE [CHEM] AM Lab 08/05/19 05:11 Ordered LIPID PANEL [CHEM] AM Lab 08/04/19 05:11 Ordered MAGNESIUM [CHEM] AM Lab 08/04/19 05:11 Ordered PHOSPHORUS [CHEM] AM Lab 08/04/19 05:11 Ordered Insulin Aspart [NovoLOG] Med 08/04/19 07:30 Active See Protocol SUBCUT TIDAC Lactated Ringers [Ringers, Lactated] 1,000 ml Med 08/03/19 22:00 Active IV ASDIRECTED Levothyroxine Med 08/04/19 09:00 Active 75 mcg PO DAILY Levothyroxine [Synthroid] Med 08/04/19 09:00 Active 100 mcg PO DAILY Morphine Med 08/03/19 21:53 Active 2 mg IVPUSH Q4H PRN Sequential Compression Device [OM.PC] Per Unit Routine Oth 08/03/19 21:54 Ordered Medication Orders Lactated Ringer's (Ringers, Lactated) 1,000 mls @ 100 mls/hr IV ASDIRECTED KIMBERLY Last Admin: 08/03/19 22:04 Dose: 100 mls/hr Insulin Aspart (Novolog) 0 unit SUBCUT TIDAC KIMBERLY; Protocol Levothyroxine Sodium (Synthroid) 100 mcg PO DAILY KIMBERLY Levothyroxine Sodium (Levothyroxine) 75 mcg PO DAILY KIMBERLY Morphine Sulfate (Morphine) 2 mg IVPUSH Q4H PRN PRN Reason: Pain (severe 7-10) Stop: 08/04/19 21:55 Assessment/Plan Comment:: A/P: 49 y/o F being admitted for management of pancreatitis Unsure of trigger, although has h/o pancreatitis in past Will admit to general floors Will keep NPO for now Will start IVF for fluid resuscitation Trend lipase No suspicion of infection as of now Will start morphine for pain control, keep an close eye on mentation and breathing as patient has CKD Zofran for N/V Check and replete electrolytes as needed takes 70-30 mixed insulin 100 BID, will gibe 30 units of lantus for now Start SSI SCD for DVT ppx
[2019-08-04] MEDS: Morphine 10 MG/ML Syringe IVPUSH PRN ×2 (01:10→05:40)
[2019-08-04] MEDS: Ondansetron 4 MG/2 ML SDV IVPUSH PRN ×5 (01:20→19:47)
[2019-08-04 06:35] LABS: BLOOD UREA NITROGEN,BUN 48 mg/dL (7.0-18.0); CARBON DIOXIDE,CO2 19.1 mmol/L (21.0-32.0); CHLORIDE,CL 102 mmol/L (98-107); GLUCOSE RANDOM 300 mg/dL (74-106); POTASSIUM,K 3.8 mmol/L (3.5-5.1); SODIUM,NA 135 mmol/L (136-145)
[2019-08-04] MEDS ORDERED: LEVOTHYROXINE 175 MCG PO SCH (07:30)
[2019-08-04] MEDS ORDERED: Insulin Aspart 100 Units/ML 3 ML Pen SUBCUT SCH (07:30)
[2019-08-04] MEDS ORDERED: Levothyroxine 100 MCG Tab PO SCH (07:45)
[2019-08-04] MEDS: Levothyroxine 75 MCG Tab PO SCH (08:56)
--- NOTE | 2019-08-04 09:05 | PCM.PN ---
<Estefania Cabrera - Last Filed: 08/04/19 12:22> - General Info Date of Service: 08/04/19 Subjective Update: THe patient is a 49 year old female who was admitted for acute pancreatitis secondary to hypertriglyceridemia. This is her third episode. Patient still reports abdominal pain and nausea. Had one episode of vomiting yesterday. Patient is NPO but requesting ice chips. Denies chest pain or shortness of breath. - Review of Systems General: Reports: No Symptoms HEENT: Reports: No Symptoms Pulmonary: Reports: No Symptoms Cardiovascular: Reports: No Symptoms Gastrointestinal: Reports: Abdominal Pain, Nausea, Vomiting Genitourinary: Reports: No Symptoms Musculoskeletal: Reports: No Symptoms Skin: Reports: No Symptoms Neurological: Reports: No Symptoms Psychiatric: Reports: No Symptoms - Patient Data Vitals - Most Recent: Last Vital Signs Temp 96.7 F 08/04/19 07:50 Pulse 88 08/04/19 07:50 Resp 18 08/04/19 07:50 BP 109/62 08/04/19 07:50 Pulse Ox 99 08/04/19 07:50 Weight - Most Recent: 107 kg I&O - Last 24 Hours: Intake & Output 08/03/19 08/04/19 08/04/19 22:59 06:59 14:59 Intake Total 420 Output Total 530 Balance -110 Lab Results Last 24 Hours: Laboratory Results - last 24 hr 08/03/19 08/03/19 08/03/19 Range/Units 16:50 16:50 16:50 WBC 9.11 (4.0-11.0) K/uL RBC 3.23 L (4.30-5.90) M/uL Hgb 9.8 L (12.0-16.0) g/dL Hct 28.1 L (36.0-46.0) % MCV 87.0 (80.0-98.0) fL MCH 30.3 (27.0-32.0) pg MCHC 34.9 (31.0-37.0) g/dL RDW Std Deviation 46.7 (28.0-62.0) fl RDW Coeff of Carine 15 (11.0-15.0) % Plt Count 204 (150-400) K/uL MPV 10.30 (7.40-12.00) fL Neut % (Auto) 80.4 H (48.0-80.0) % Lymph % (Auto) 13.2 L (16.0-40.0) % [place] % (Auto) 4.9 (0.0-15.0) % Eos % (Auto) 1.4 (0.0-7.0) % Baso % (Auto) 0.1 (0.0-1.5) % Neut # (Auto) 7.3 H (1.4-5.7) K/uL Lymph # (Auto) 1.2 (0.6-2.4) K/uL [place] # (Auto) 0.5 (0.0-0.8) K/uL Eos # (Auto) 0.1 (0.0-0.7) K/uL Baso # (Auto) 0.0 (0.0-0.1) K/uL Nucleated RBC % 0.0 /100WBC Nucleated RBCs # 0 K/uL Lactate 1.5 (0.20-2.00) mmol/L Sodium 131 L (136-145) mmol/L Potassium 3.8 (3.5-5.1) mmol/L Chloride 99 (98-107) mmol/L Carbon Dioxide 17.6 L (21.0-32.0) mmol/L BUN 56 H (7.0-18.0) mg/dL Creatinine 3.2 H (0.6-1.0) mg/dL Est Cr Clr Drug Dosing 22.71 mL/min Estimated GFR (MDRD) 15.5 ml/min Glucose 367 H (74-106) mg/dL POC Glucose (60-110) mg/dL Calcium 9.0 (8.5-10.1) mg/dL Phosphorus (2.6-4.7) mg/dL Magnesium (1.8-2.4) mg/dL Total Bilirubin 0.3 (0.2-1.0) mg/dL AST 20 (15-37) IU/L ALT 40 (14-63) IU/L Alkaline Phosphatase 50 (46-116) U/L Total Protein 7.5 (6.4-8.2) g/dL Albumin 3.4 (3.4-5.0) g/dL Globulin 4.1 H (2.6-4.0) g/dL Albumin/Globulin Ratio 0.8 L (0.9-1.6) Triglycerides (0-200) mg/dL Cholesterol (50-200) mg/dL HDL Cholesterol (40-60) mg/dL Cholesterol/HDL Ratio (3.3-6.0) Lipase 3326 H (73-393) U/L Urine Color Urine Appearance Urine pH (5.0-8.0) Ur Specific [place] (1.001-1.035) Urine Protein (NEGATIVE) mg/dL Urine Glucose (UA) (NEGATIVE) mg/dL Urine Ketones (NEGATIVE) mg/dL Urine Occult Blood (NEGATIVE) Urine Nitrite (NEGATIVE) Urine Bilirubin (NEGATIVE) Urine Urobilinogen (<2.0) EU/dL Ur Leukocyte Esterase (NEGATIVE) Urine RBC (0-2/HPF) Urine WBC (0-5/HPF) Ur Epithelial Cells (NONE-FEW) Urine Bacteria (NEGATIVE) 08/03/19 08/03/19 08/04/19 Range/Units 19:45 22:14 05:48 WBC (4.0-11.0) K/uL RBC (4.30-5.90) M/uL Hgb (12.0-16.0) g/dL Hct (36.0-46.0) % MCV (80.0-98.0) fL MCH (27.0-32.0) pg MCHC (31.0-37.0) g/dL RDW Std Deviation (28.0-62.0) fl RDW Coeff of Carine (11.0-15.0) % Plt Count (150-400) K/uL MPV (7.40-12.00) fL Neut % (Auto) (48.0-80.0) % Lymph % (Auto) (16.0-40.0) % [place] % (Auto) (0.0-15.0) % Eos % (Auto) (0.0-7.0) % Baso % (Auto) (0.0-1.5) % Neut # (Auto) (1.4-5.7) K/uL Lymph # (Auto) (0.6-2.4) K/uL [place] # (Auto) (0.0-0.8) K/uL Eos # (Auto) (0.0-0.7) K/uL Baso # (Auto) (0.0-0.1) K/uL Nucleated RBC % /100WBC Nucleated RBCs # K/uL Lactate (0.20-2.00) mmol/L Sodium 135 L (136-145) mmol/L Potassium 3.8 (3.5-5.1) mmol/L Chloride 102 (98-107) mmol/L Carbon Dioxide 19.1 L (21.0-32.0) mmol/L BUN 48 H (7.0-18.0) mg/dL Creatinine 3.1 H (0.6-1.0) mg/dL Est Cr Clr Drug Dosing 23.45 mL/min Estimated GFR (MDRD) 16.1 ml/min Glucose 300 H (74-106) mg/dL POC Glucose 229 H (60-110) mg/dL Calcium 8.4 L (8.5-10.1) mg/dL Phosphorus 4.7 (2.6-4.7) mg/dL Magnesium 2.0 (1.8-2.4) mg/dL Total Bilirubin (0.2-1.0) mg/dL AST (15-37) IU/L ALT (14-63) IU/L Alkaline Phosphatase (46-116) U/L Total Protein (6.4-8.2) g/dL Albumin (3.4-5.0) g/dL Globulin (2.6-4.0) g/dL Albumin/Globulin Ratio (0.9-1.6) Triglycerides 1136 H (0-200) mg/dL Cholesterol 295 H (50-200) mg/dL HDL Cholesterol 29 L (40-60) mg/dL Cholesterol/HDL Ratio 10.2 H (3.3-6.0) Lipase (73-393) U/L Urine Color YELLOW Urine Appearance SLT CLOUDY Urine pH 6.0 (5.0-8.0) Ur Specific [place] 1.025 (1.001-1.035) Urine Protein >=300 H (NEGATIVE) mg/dL Urine Glucose (UA) >=1000 (NEGATIVE) mg/dL Urine Ketones NEGATIVE (NEGATIVE) mg/dL Urine Occult Blood LARGE H (NEGATIVE) Urine Nitrite NEGATIVE (NEGATIVE) Urine Bilirubin NEGATIVE (NEGATIVE) Urine Urobilinogen 0.2 (<2.0) EU/dL Ur Leukocyte Esterase NEGATIVE (NEGATIVE) Urine RBC 0-3 (0-2/HPF) Urine WBC 0-2 (0-5/HPF) Ur Epithelial Cells FEW (NONE-FEW) Urine Bacteria FEW (NEGATIVE) 08/04/19 08/04/19 Range/Units 05:48 06:34 WBC 7.94 (4.0-11.0) K/uL RBC 3.02 L (4.30-5.90) M/uL Hgb 9.2 L (12.0-16.0) g/dL Hct 26.8 L (36.0-46.0) % MCV 88.7 (80.0-98.0) fL MCH 30.5 (27.0-32.0) pg MCHC 34.3 (31.0-37.0) g/dL RDW Std Deviation 48.9 (28.0-62.0) fl RDW Coeff of Carine 15 (11.0-15.0) % Plt Count 183 (150-400) K/uL MPV 10.40 (7.40-12.00) fL Neut % (Auto) 86.0 H (48.0-80.0) % Lymph % (Auto) 9.4 L (16.0-40.0) % [place] % (Auto) 3.4 (0.0-15.0) % Eos % (Auto) 1.1 (0.0-7.0) % Baso % (Auto) 0.1 (0.0-1.5) % Neut # (Auto) 6.8 H (1.4-5.7) K/uL Lymph # (Auto) 0.8 (0.6-2.4) K/uL [place] # (Auto) 0.3 (0.0-0.8) K/uL Eos # (Auto) 0.1 (0.0-0.7) K/uL Baso # (Auto) 0.0 (0.0-0.1) K/uL Nucleated RBC % 0.0 /100WBC Nucleated RBCs # 0 K/uL Lactate (0.20-2.00) mmol/L Sodium (136-145) mmol/L Potassium (3.5-5.1) mmol/L Chloride (98-107) mmol/L Carbon Dioxide (21.0-32.0) mmol/L BUN (7.0-18.0) mg/dL Creatinine (0.6-1.0) mg/dL Est Cr Clr Drug Dosing mL/min Estimated GFR (MDRD) ml/min Glucose (74-106) mg/dL POC Glucose 283 H (60-110) mg/dL Calcium (8.5-10.1) mg/dL Phosphorus (2.6-4.7) mg/dL Magnesium (1.8-2.4) mg/dL Total Bilirubin (0.2-1.0) mg/dL AST (15-37) IU/L ALT (14-63) IU/L Alkaline Phosphatase (46-116) U/L Total Protein (6.4-8.2) g/dL Albumin (3.4-5.0) g/dL Globulin (2.6-4.0) g/dL Albumin/Globulin Ratio (0.9-1.6) Triglycerides (0-200) mg/dL Cholesterol (50-200) mg/dL HDL Cholesterol (40-60) mg/dL Cholesterol/HDL Ratio (3.3-6.0) Lipase (73-393) U/L Urine Color Urine Appearance Urine pH (5.0-8.0) Ur Specific [place] (1.001-1.035) Urine Protein (NEGATIVE) mg/dL Urine Glucose (UA) (NEGATIVE) mg/dL Urine Ketones (NEGATIVE) mg/dL Urine Occult Blood (NEGATIVE) Urine Nitrite (NEGATIVE) Urine Bilirubin (NEGATIVE) Urine Urobilinogen (<2.0) EU/dL Ur Leukocyte Esterase (NEGATIVE) Urine RBC (0-2/HPF) Urine WBC (0-5/HPF) Ur Epithelial Cells (NONE-FEW) Urine Bacteria (NEGATIVE) Med Orders - Current: Current Medications Lactated Ringer's (Ringers, Lactated) 1,000 mls @ 100 mls/hr IV ASDIRECTED [facility] Last Admin: 08/03/19 22:04 Dose: 100 mls/hr Insulin Aspart (Novolog) 0 unit SUBCUT TIDAC [facility]; Protocol Last Admin: 08/04/19 06:54 Dose: 6 units Levothyroxine Sodium (Synthroid) 100 mcg PO ACBREAKFAST [facility] Levothyroxine Sodium (Levothyroxine) 75 mcg PO ACBREAKFAST [facility] Morphine Sulfate (Morphine) 2 mg IVPUSH Q4H PRN PRN Reason: Pain (severe 7-10) Stop: 08/04/19 21:55 Last Admin: 08/04/19 05:40 Dose: 2 mg Ondansetron HCl (Zofran) 4 mg IVPUSH Q4H PRN PRN Reason: Nausea/Vomiting Last Admin: 08/04/19 05:40 Dose: 4 mg Discontinued Medications Sodium Chloride (Normal Saline) 1,000 mls @ 1,000 mls/hr IV .Bolus ONE Stop: 08/03/19 19:35 Last Admin: 08/03/19 19:04 Dose: 1,000 mls/hr Insulin Detemir (Levemir) 20 unit SUBCUT ONETIME ONE Stop: 08/03/19 21:58 Last Admin: 08/03/19 22:19 Dose: Not Given Insulin Detemir (Levemir) 30 unit SUBCUT ONETIME ONE Stop: 08/03/19 22:17 Last Admin: 08/03/19 22:32 Dose: 30 units Morphine Sulfate (Morphine) 4 mg IVPUSH ONETIME ONE Stop: 08/03/19 16:48 Last Admin: 08/03/19 16:58 Dose: 4 mg Morphine Sulfate (Morphine) 2 mg IVPUSH ONETIME ONE Stop: 08/03/19 21:36 Last Admin: 08/03/19 21:45 Dose: 2 mg Non-Formulary Medication (Levothyroxine) 175 mcg PO ACBREAKFAST [facility] Ondansetron HCl (Zofran) 4 mg IVPUSH ONETIME ONE Stop: 08/03/19 16:48 Last Admin: 08/03/19 16:54 Dose: 4 mg - Exam General: Alert, Oriented Lungs: Clear to Auscultation, Normal Respiratory Effort Cardiovascular: Regular Rate, Regular Rhythm GI/Abdominal Exam: Normal Bowel Sounds, Soft, Tender Extremities: Normal Inspection, No Pedal Edema Skin: Warm Neurological: No New Focal Deficit Psy/Mental Status: Alert, Normal Affect, Normal Mood Sepsis Event Note - Evaluation Sepsis Screening Result: Possible Sepsis Risk - Focused Exam Vital Signs: Vital Signs Temp Pulse Resp BP Pulse Ox 08/04/19 07:50 96.7 F 88 18 109/62 99 08/04/19 04:00 96.8 F 84 14 128/60 99 08/03/19 23:50 97.8 F 85 14 118/73 96 Date Exam was Performed: 08/04/19 Time Exam was Performed: 12:22 - Problem List Review Problem List Initiated/Reviewed/Updated: Yes - Plan Plan:: 1. Acute pancreatitis secondary to hypertriglyceridemia- Continue NPO, IVFs, pain/nausea control. Start insulin drip. Patient already on max dose of fenofibrate at home. 2. CKD- stable, continue to monitor 3. DMII- sugars running high-continue sliding scale. patient will be on insulin drip for pancreatitis, monitor sugar q 1 hr. Will reassess this evening for long acting dose. 4. Chronic conditions- hypothyroidism, hyperlipidemia- continue home meds, restart fenofibrate tomorrow <Angel Solano - Last Filed: 08/04/19 21:05> - Patient Data Vitals - Most Recent: Last Vital Signs Temp 36.4 C 08/04/19 19:25 Pulse 80 08/04/19 19:25 Resp 18 08/04/19 19:25 BP 123/73 08/04/19 19:25 Pulse Ox 97 08/04/19 19:25 I&O - Last 24 Hours: Intake & Output 08/04/19 08/04/19 08/04/19 06:59 14:59 22:59 Intake Total 420 1392 Output Total 530 1600 Balance -110 -208 Lab Results Last 24 Hours: Laboratory Results - last 24 hr 08/03/19 08/04/19 08/04/19 Range/Units 22:14 05:48 05:48 WBC 7.94 (4.0-11.0) K/uL RBC 3.02 L (4.30-5.90) M/uL Hgb 9.2 L (12.0-16.0) g/dL Hct 26.8 L (36.0-46.0) % MCV 88.7 (80.0-98.0) fL MCH 30.5 (27.0-32.0) pg MCHC 34.3 (31.0-37.0) g/dL RDW Std Deviation 48.9 (28.0-62.0) fl RDW Coeff of Carine 15 (11.0-15.0) % Plt Count 183 (150-400) K/uL MPV 10.40 (7.40-12.00) fL Neut % (Auto) 86.0 H (48.0-80.0) % Lymph % (Auto) 9.4 L (16.0-40.0) % [place] % (Auto) 3.4 (0.0-15.0) % Eos % (Auto) 1.1 (0.0-7.0) % Baso % (Auto) 0.1 (0.0-1.5) % Neut # (Auto) 6.8 H (1.4-5.7) K/uL Lymph # (Auto) 0.8 (0.6-2.4) K/uL [place] # (Auto) 0.3 (0.0-0.8) K/uL Eos # (Auto) 0.1 (0.0-0.7) K/uL Baso # (Auto) 0.0 (0.0-0.1) K/uL Nucleated RBC % 0.0 /100WBC Nucleated RBCs # 0 K/uL Sodium 135 L (136-145) mmol/L Potassium 3.8 (3.5-5.1) mmol/L Chloride 102 (98-107) mmol/L Carbon Dioxide 19.1 L (21.0-32.0) mmol/L BUN 48 H (7.0-18.0) mg/dL Creatinine 3.1 H (0.6-1.0) mg/dL Est Cr Clr Drug Dosing 23.45 mL/min Estimated GFR (MDRD) 16.1 ml/min Glucose 300 H (74-106) mg/dL POC Glucose 229 H (60-110) mg/dL Calcium 8.4 L (8.5-10.1) mg/dL Phosphorus 4.7 (2.6-4.7) mg/dL Magnesium 2.0 (1.8-2.4) mg/dL Triglycerides 1136 H (0-200) mg/dL Cholesterol 295 H (50-200) mg/dL HDL Cholesterol 29 L (40-60) mg/dL Cholesterol/HDL Ratio 10.2 H (3.3-6.0) Lipase (73-393) U/L 08/04/19 08/04/19 08/04/19 Range/Units 05:48 06:34 11:59 WBC (4.0-11.0) K/uL RBC (4.30-5.90) M/uL Hgb (12.0-16.0) g/dL Hct (36.0-46.0) % MCV (80.0-98.0) fL MCH (27.0-32.0) pg MCHC (31.0-37.0) g/dL RDW Std Deviation (28.0-62.0) fl RDW Coeff of Carine (11.0-15.0) % Plt Count (150-400) K/uL MPV (7.40-12.00) fL Neut % (Auto) (48.0-80.0) % Lymph % (Auto) (16.0-40.0) % [place] % (Auto) (0.0-15.0) % Eos % (Auto) (0.0-7.0) % Baso % (Auto) (0.0-1.5) % Neut # (Auto) (1.4-5.7) K/uL Lymph # (Auto) (0.6-2.4) K/uL [place] # (Auto) (0.0-0.8) K/uL Eos # (Auto) (0.0-0.7) K/uL Baso # (Auto) (0.0-0.1) K/uL Nucleated RBC % /100WBC Nucleated RBCs # K/uL Sodium (136-145) mmol/L Potassium (3.5-5.1) mmol/L Chloride (98-107) mmol/L Carbon Dioxide (21.0-32.0) mmol/L BUN (7.0-18.0) mg/dL Creatinine (0.6-1.0) mg/dL Est Cr Clr Drug Dosing mL/min Estimated GFR (MDRD) ml/min Glucose (74-106) mg/dL POC Glucose 283 H 305 H (60-110) mg/dL Calcium (8.5-10.1) mg/dL Phosphorus (2.6-4.7) mg/dL Magnesium (1.8-2.4) mg/dL Triglycerides (0-200) mg/dL Cholesterol (50-200) mg/dL HDL Cholesterol (40-60) mg/dL Cholesterol/HDL Ratio (3.3-6.0) Lipase 7310 H (73-393) U/L 08/04/19 08/04/1908/04/20 Range/Units 13:29 14:45 15:32 WBC (4.0-11.0) K/uL RBC (4.30-5.90) M/uL Hgb (12.0-16.0) g/dL Hct (36.0-46.0) % MCV (80.0-98.0) fL MCH (27.0-32.0) pg MCHC (31.0-37.0) g/dL RDW Std Deviation (28.0-62.0) fl RDW Coeff of Carine (11.0-15.0) % Plt Count (150-400) K/uL MPV (7.40-12.00) fL Neut % (Auto) (48.0-80.0) % Lymph % (Auto) (16.0-40.0) % [place] % (Auto) (0.0-15.0) % Eos % (Auto) (0.0-7.0) % Baso % (Auto) (0.0-1.5) % Neut # (Auto) (1.4-5.7) K/uL Lymph # (Auto) (0.6-2.4) K/uL [place] # (Auto) (0.0-0.8) K/uL Eos # (Auto) (0.0-0.7) K/uL Baso # (Auto) (0.0-0.1) K/uL Nucleated RBC % /100WBC Nucleated RBCs # K/uL Sodium (136-145) mmol/L Potassium (3.5-5.1) mmol/L Chloride (98-107) mmol/L Carbon Dioxide (21.0-32.0) mmol/L BUN (7.0-18.0) mg/dL Creatinine (0.6-1.0) mg/dL Est Cr Clr Drug Dosing mL/min Estimated GFR (MDRD) ml/min Glucose (74-106) mg/dL POC Glucose 310 H 218 H 212 H (60-110) mg/dL Calcium (8.5-10.1) mg/dL Phosphorus (2.6-4.7) mg/dL Magnesium (1.8-2.4) mg/dL Triglycerides (0-200) mg/dL Cholesterol (50-200) mg/dL HDL Cholesterol (40-60) mg/dL Cholesterol/HDL Ratio (3.3-6.0) Lipase (73-393) U/L 08/04/19 08/04/19 08/04/19 Range/Units 16:32 17:22 18:25 WBC (4.0-11.0) K/uL RBC (4.30-5.90) M/uL Hgb (12.0-16.0) g/dL Hct (36.0-46.0) % MCV (80.0-98.0) fL MCH (27.0-32.0) pg MCHC (31.0-37.0) g/dL RDW Std Deviation (28.0-62.0) fl RDW Coeff of Carine (11.0-15.0) % Plt Count (150-400) K/uL MPV (7.40-12.00) fL Neut % (Auto) (48.0-80.0) % Lymph % (Auto) (16.0-40.0) % [place] % (Auto) (0.0-15.0) % Eos % (Auto) (0.0-7.0) % Baso % (Auto) (0.0-1.5) % Neut # (Auto) (1.4-5.7) K/uL Lymph # (Auto) (0.6-2.4) K/uL [place] # (Auto) (0.0-0.8) K/uL Eos # (Auto) (0.0-0.7) K/uL Baso # (Auto) (0.0-0.1) K/uL Nucleated RBC % /100WBC Nucleated RBCs # K/uL Sodium (136-145) mmol/L Potassium (3.5-5.1) mmol/L Chloride (98-107) mmol/L Carbon Dioxide (21.0-32.0) mmol/L BUN (7.0-18.0) mg/dL Creatinine (0.6-1.0) mg/dL Est Cr Clr Drug Dosing mL/min Estimated GFR (MDRD) ml/min Glucose (74-106) mg/dL POC Glucose 201 H 177 H 175 H (60-110) mg/dL Calcium (8.5-10.1) mg/dL Phosphorus (2.6-4.7) mg/dL Magnesium (1.8-2.4) mg/dL Triglycerides (0-200) mg/dL Cholesterol (50-200) mg/dL HDL Cholesterol (40-60) mg/dL Cholesterol/HDL Ratio (3.3-6.0) Lipase (73-393) U/L 08/04/19 08/04/19 Range/Units 19:31 20:31 WBC (4.0-11.0) K/uL RBC (4.30-5.90) M/uL Hgb (12.0-16.0) g/dL Hct (36.0-46.0) % MCV (80.0-98.0) fL MCH (27.0-32.0) pg MCHC (31.0-37.0) g/dL RDW Std Deviation (28.0-62.0) fl RDW Coeff of Carine (11.0-15.0) % Plt Count (150-400) K/uL MPV (7.40-12.00) fL Neut % (Auto) (48.0-80.0) % Lymph % (Auto) (16.0-40.0) % [place] % (Auto) (0.0-15.0) % Eos % (Auto) (0.0-7.0) % Baso % (Auto) (0.0-1.5) % Neut # (Auto) (1.4-5.7) K/uL Lymph # (Auto) (0.6-2.4) K/uL [place] # (Auto) (0.0-0.8) K/uL Eos # (Auto) (0.0-0.7) K/uL Baso # (Auto) (0.0-0.1) K/uL Nucleated RBC % /100WBC Nucleated RBCs # K/uL Sodium (136-145) mmol/L Potassium (3.5-5.1) mmol/L Chloride (98-107) mmol/L Carbon Dioxide (21.0-32.0) mmol/L BUN (7.0-18.0) mg/dL Creatinine (0.6-1.0) mg/dL Est Cr Clr Drug Dosing mL/min Estimated GFR (MDRD) ml/min Glucose (74-106) mg/dL POC Glucose 163 H 156 H (60-110) mg/dL Calcium (8.5-10.1) mg/dL Phosphorus (2.6-4.7) mg/dL Magnesium (1.8-2.4) mg/dL Triglycerides (0-200) mg/dL Cholesterol (50-200) mg/dL HDL Cholesterol (40-60) mg/dL Cholesterol/HDL Ratio (3.3-6.0) Lipase (73-393) U/L Med Orders - Current: Current Medications Amlodipine Besylate (Norvasc) 5 mg PO DAILY [facility] Atorvastatin Calcium (Lipitor) 40 mg PO DAILY [facility] Lactated Ringer's (Ringers, Lactated) 1,000 mls @ 100 mls/hr IV ASDIRECTED [facility] Last Admin: 08/04/19 14:25 Dose: 100 mls/hr Insulin Human Regular 100 unit (/ Sodium Chloride) 100 mls @ 1 mls/hr IV DAILY [facility] Last Admin: 08/04/19 12:32 Dose: 1 unit/hr, 1 mls/hr Insulin Aspart (Novolog) 0 unit SUBCUT TIDAC [facility]; Protocol Last Admin: 08/04/19 17:37 Dose: 2 unit Levothyroxine Sodium (Levothyroxine) 75 mcg PO ACBREAKFAST [facility] Last Admin: 08/04/19 08:56 Dose: 75 mcg Levothyroxine Sodium (Synthroid) 200 mcg PO ACBREAKFAST [facility] Morphine Sulfate (Morphine) 2 mg IVPUSH Q4H PRN PRN Reason: Pain (severe 7-10) Stop: 08/04/19 21:55 Last Admin: 08/04/19 19:47 Dose: 2 mg Non-Formulary Medication (Fenofibrate Nanocrystallized) 200 mg PO DAILY [facility] Ondansetron HCl (Zofran) 4 mg IVPUSH Q4H PRN PRN Reason: Nausea/Vomiting Last Admin: 08/04/19 19:47 Dose: 4 mg Discontinued Medications Sodium Chloride (Normal Saline) 1,000 mls @ 1,000 mls/hr IV .Bolus ONE Stop: 08/03/19 19:35 Last Admin: 08/03/19 19:04 Dose: 1,000 mls/hr Insulin Human Regular 100 unit (/ Sodium Chloride) 100 mls @ 1 mls/hr IV Q2HR [facility] Last Admin: 08/04/19 15:59 Dose: Not Given Insulin Aspart (Novolog) 0 unit SUBCUT TIDAC [facility]; Protocol Last Admin: 08/04/19 06:54 Dose: 6 units Insulin Detemir (Levemir) 20 unit SUBCUT ONETIME ONE Stop: 08/03/19 21:58 Last Admin: 08/03/19 22:19 Dose: Not Given Insulin Detemir (Levemir) 30 unit SUBCUT ONETIME ONE Stop: 08/03/19 22:17 Last Admin: 08/03/19 22:32 Dose: 30 units Levothyroxine Sodium (Synthroid) 100 mcg PO ACBREAKFAST [facility] Last Admin: 08/04/19 08:56 Dose: 100 mcg Morphine Sulfate (Morphine) 4 mg IVPUSH ONETIME ONE Stop: 08/03/19 16:48 Last Admin: 08/03/19 16:58 Dose: 4 mg Morphine Sulfate (Morphine) 2 mg IVPUSH ONETIME ONE Stop: 08/03/19 21:36 Last Admin: 08/03/19 21:45 Dose: 2 mg Morphine Sulfate (Morphine) 2 mg IVPUSH Q4H PRN PRN Reason: Pain (severe 7-10) Stop: 08/04/19 21:55 Last Admin: 08/04/19 05:40 Dose: 2 mg Non-Formulary Medication (Levothyroxine) [facility] Ondans[facility] HCl (Zofran) 4 mg IVPUSH ONETIME ONE Stop: 08/03/19 16:48 Last Admin: 08/03/19 16:54 Dose: 4 mg Sepsis Event Note - Focused Exam Vital Signs: Vital Signs Temp Pulse Resp BP BP Pulse Ox 08/04/19 19:25 36.4 C 80 18 123/73 97 08/04/19 16:26 36.7 C 81 18 110/68 97 08/04/19 13:51 36.8 C 83 20 139/75 08/04/19 12:02 36.3 C 82 16 116/71 97 Date Exam was Performed: 08/04/19 Time Exam was Performed: 21:04 - Problem List & Annotations (1) Chronic renal disease, stage 3, moderately decreased glomerular filtration rate between 30-59 mL/min/1.73 square meter SNOMED Code(s): 495874866 Code(s): N18.3 - CHRONIC KIDNEY DISEASE, STAGE 3 (MODERATE) Status: Acute Current Visit: Yes (2) Pancreatitis SNOMED Code(s): 13383584 Code(s): K85.90 - ACUTE PANCREATITIS WITHOUT NECROSIS OR INFECTION, UNSP Status: Acute Current Visit: Yes Qualifiers: Chronicity: acute Pancreatitis type: unspecified pancreatitis type Acute pancreatitis complication: no infection or necrosis Qualified Code(s): K85.90 - Acute pancreatitis without necrosis or infection, unspecified (3) Abdominal pain SNOMED Code(s): 77943842 Code(s): R10.9 - UNSPECIFIED ABDOMINAL PAIN Status: Acute Current Visit: No (4) Diabetes SNOMED Code(s): 79189529 Code(s): E11.9 - TYPE 2 DIABETES MELLITUS WITHOUT COMPLICATIONS Status: Acute Current Visit: No - My Orders Last 24 Hours: My Active Orders 08/03/19 21:53 Oxygen Therapy [RC] PRN VTE/DVT Education [RC] PER UNIT ROUTINE Vital Signs [RC] Q4H 08/03/19 21:54 Ambulate [RC] PER UNIT ROUTINE Antiembolic Devices [RC] PER UNIT ROUTINE Sequential Compression Device [OM.PC] Per Unit Routine 08/03/19 22:00 Lactated Ringers [Ringers, Lactated] 1,000 ml IV ASDIRECTED 08/03/19 22:50 Discontinue Telemetry Monitoring [Cardiac Monitoring Discontinue] [RC] Click to Edit 08/03/19 22:53 Ondansetron [Zofran] 4 mg IVPUSH Q4H PRN 08/03/19 23:03 [employer] Discontinue [Cardiac Monitoring Discontinue] [RC] Click to Edit 08/04/19 07:45 Levothyroxine 75 mcg PO ACBREAKFAST 08/04/19 10:00 Morphine 2 mg IVPUSH Q4H PRN 08/05/19 05:11 LIPASE [CHEM] AM 08/05/19 07:30 Levothyroxine [Synthroid] 200 mcg PO ACBREAKFAST - Plan Plan:: I have seen and evaluated the patient and agree with the residents note unless specified in my note
[2019-08-04] MEDS: Morphine 2 MG/ML Syringe IVPUSH PRN ×3 (09:55→19:47)
[2019-08-04] MEDS: Insulin Aspart 100 Units/ML 3 ML Pen SUBCUT SCH ×2 (12:37→17:37)
[2019-08-04] MEDS: Lactated Ringers 1,000 ML IV SCH (14:25)
[2019-08-05] MEDS: Ondansetron 4 MG/2 ML SDV IVPUSH PRN ×2 (00:12→04:51)
[2019-08-05] MEDS: Morphine 2 MG/ML Syringe IVPUSH PRN ×2 (00:14→04:52)
[2019-08-05] MEDS: Lactated Ringers 1,000 ML IV SCH ×2 (00:19→09:35)
[2019-08-05 05:47] LABS: BLOOD UREA NITROGEN,BUN 42 mg/dL (7.0-18.0); CHLORIDE,CL 106 mmol/L (98-107); GLUCOSE RANDOM 146 mg/dL (74-106); POTASSIUM,K 3.4 mmol/L (3.5-5.1); SODIUM,NA 138 mmol/L (136-145)
[2019-08-05 06:06] LABS: LIPASE 1985 U/L (73-393)
[2019-08-05] MEDS: Levothyroxine 75 MCG Tab PO SCH (06:39)
[2019-08-05] MEDS: Levothyroxine 100 MCG Tab PO SCH (06:39)
[2019-08-05] MEDS: Insulin Aspart 100 Units/ML 3 ML Pen SUBCUT SCH ×3 (07:39→17:00)
[2019-08-05] MEDS: atorvaSTATin 40 MG Tab PO SCH (09:22)
[2019-08-05] MEDS: amLODIPine 5 MG Tab PO SCH (09:22)
[2019-08-05] MEDS: FENOFIBRATE 200 MG PO SCH (09:24)
[2019-08-05] MEDS ORDERED: Potassium Chloride 20 MEQ Tab.ER PO ONE (11:37)
--- NOTE | 2019-08-05 11:54 | PCM.PN ---
- General Info Date of Service: 08/05/19 Admission Dx/Problem (Free Text): Admission Diagnosis/Problem Admission Diagnosis/Problem Acute pancreatitis Subjective Update: Felselena improved today, pain is ok. Wanting to eat so she can go home. NO chest pain. No dyspnea. Functional Status: Reports: Pain Controlled - Review of Systems General: Reports: No Symptoms. Denies: Weakness, Fatigue HEENT: Reports: No Symptoms Pulmonary: Reports: No Symptoms. Denies: Shortness of Breath Cardiovascular: Reports: No Symptoms. Denies: Chest Pain Gastrointestinal: Reports: Abdominal Pain (improved). Denies: Nausea, Vomiting Genitourinary: Reports: No Symptoms. Denies: Dysuria, Frequency, Burning Musculoskeletal: Reports: No Symptoms Skin: Reports: No Symptoms Neurological: Reports: No Symptoms Psychiatric: Reports: No Symptoms - Patient Data Vitals - Most Recent: Last Vital Signs Temp 97.3 F 08/05/19 11:23 Pulse 79 08/05/19 11:23 Resp 20 08/05/19 11:23 BP 99/59 L 08/05/19 11:23 Pulse Ox 95 08/05/19 11:23 Weight - Most Recent: 107 kg I&O - Last 24 Hours: Intake & Output 08/04/19 08/05/19 08/05/19 22:59 06:59 14:59 Intake Total 1392 1232 Output Total 1600 600 Balance -208 632 Lab Results Last 24 Hours: Laboratory Results - last 24 hr 08/04/19 08/04/19 08/04/19 Range/Units 11:59 13:29 14:45 WBC (4.0-11.0) K/uL RBC (4.30-5.90) M/uL Hgb (12.0-16.0) g/dL Hct (36.0-46.0) % MCV (80.0-98.0) fL MCH (27.0-32.0) pg MCHC (31.0-37.0) g/dL RDW Std Deviation (28.0-62.0) fl RDW Coeff of Carine (11.0-15.0) % Plt Count (150-400) K/uL MPV (7.40-12.00) fL Neut % (Auto) (48.0-80.0) % Lymph % (Auto) (16.0-40.0) % [place] % (Auto) (0.0-15.0) % Eos % (Auto) (0.0-7.0) % Baso % (Auto) (0.0-1.5) % Neut # (Auto) (1.4-5.7) K/uL Lymph # (Auto) (0.6-2.4) K/uL [place] # (Auto) (0.0-0.8) K/uL Eos # (Auto) (0.0-0.7) K/uL Baso # (Auto) (0.0-0.1) K/uL Nucleated RBC % /100WBC Nucleated RBCs # K/uL Sodium (136-145) mmol/L Potassium (3.5-5.1) mmol/L Chloride (98-107) mmol/L Carbon Dioxide (21.0-32.0) mmol/L BUN (7.0-18.0) mg/dL Creatinine (0.6-1.0) mg/dL Est Cr Clr Drug Dosing mL/min Estimated GFR (MDRD) ml/min Glucose (74-106) mg/dL POC Glucose 305 H 310 H 218 H (60-110) mg/dL Calcium (8.5-10.1) mg/dL Triglycerides (0-200) mg/dL Cholesterol (50-200) mg/dL HDL Cholesterol (40-60) mg/dL Cholesterol/HDL Ratio (3.3-6.0) Lipase (73-393) U/L 08/04/19 08/04/19 08/04/19 Range/Units 15:32 16:32 17:22 WBC (4.0-11.0) K/uL RBC (4.30-5.90) M/uL Hgb (12.0-16.0) g/dL Hct (36.0-46.0) % MCV (80.0-98.0) fL MCH (27.0-32.0) pg MCHC (31.0-37.0) g/dL RDW Std Deviation (28.0-62.0) fl RDW Coeff of Carine (11.0-15.0) % Plt Count (150-400) K/uL MPV (7.40-12.00) fL Neut % (Auto) (48.0-80.0) % Lymph % (Auto) (16.0-40.0) % [place] % (Auto) (0.0-15.0) % Eos % (Auto) (0.0-7.0) % Baso % (Auto) (0.0-1.5) % Neut # (Auto) (1.4-5.7) K/uL Lymph # (Auto) (0.6-2.4) K/uL [place] # (Auto) (0.0-0.8) K/uL Eos # (Auto) (0.0-0.7) K/uL Baso # (Auto) (0.0-0.1) K/uL Nucleated RBC % /100WBC Nucleated RBCs # K/uL Sodium (136-145) mmol/L Potassium (3.5-5.1) mmol/L Chloride (98-107) mmol/L Carbon Dioxide (21.0-32.0) mmol/L BUN (7.0-18.0) mg/dL Creatinine (0.6-1.0) mg/dL Est Cr Clr Drug Dosing mL/min Estimated GFR (MDRD) ml/min Glucose (74-106) mg/dL POC Glucose 212 H 201 H 177 H (60-110) mg/dL Calcium (8.5-10.1) mg/dL Triglycerides (0-200) mg/dL Cholesterol (50-200) mg/dL HDL Cholesterol (40-60) mg/dL Cholesterol/HDL Ratio (3.3-6.0) Lipase (73-393) U/L 08/04/19 08/04/19 08/04/19 Range/Units 18:25 19:31 20:31 WBC (4.0-11.0) K/uL RBC (4.30-5.90) M/uL Hgb (12.0-16.0) g/dL Hct (36.0-46.0) % MCV (80.0-98.0) fL MCH (27.0-32.0) pg MCHC (31.0-37.0) g/dL RDW Std Deviation (28.0-62.0) fl RDW Coeff of Carine (11.0-15.0) % Plt Count (150-400) K/uL MPV (7.40-12.00) fL Neut % (Auto) (48.0-80.0) % Lymph % (Auto) (16.0-40.0) % [place] % (Auto) (0.0-15.0) % Eos % (Auto) (0.0-7.0) % Baso % (Auto) (0.0-1.5) % Neut # (Auto) (1.4-5.7) K/uL Lymph # (Auto) (0.6-2.4) K/uL [place] # (Auto) (0.0-0.8) K/uL Eos # (Auto) (0.0-0.7) K/uL Baso # (Auto) (0.0-0.1) K/uL Nucleated RBC % /100WBC Nucleated RBCs # K/uL Sodium (136-145) mmol/L Potassium (3.5-5.1) mmol/L Chloride (98-107) mmol/L Carbon Dioxide (21.0-32.0) mmol/L BUN (7.0-18.0) mg/dL Creatinine (0.6-1.0) mg/dL Est Cr Clr Drug Dosing mL/min Estimated GFR (MDRD) ml/min Glucose (74-106) mg/dL POC Glucose 175 H 163 H 156 H (60-110) mg/dL Calcium (8.5-10.1) mg/dL Triglycerides (0-200) mg/dL Cholesterol (50-200) mg/dL HDL Cholesterol (40-60) mg/dL Cholesterol/HDL Ratio (3.3-6.0) Lipase (73-393) U/L 08/04/19 08/04/19 08/04/19 Range/Units 21:31 22:34 23:33 WBC (4.0-11.0) K/uL RBC (4.30-5.90) M/uL Hgb (12.0-16.0) g/dL Hct (36.0-46.0) % MCV (80.0-98.0) fL MCH (27.0-32.0) pg MCHC (31.0-37.0) g/dL RDW Std Deviation (28.0-62.0) fl RDW Coeff of Carine (11.0-15.0) % Plt Count (150-400) K/uL MPV (7.40-12.00) fL Neut % (Auto) (48.0-80.0) % Lymph % (Auto) (16.0-40.0) % [place] % (Auto) (0.0-15.0) % Eos % (Auto) (0.0-7.0) % Baso % (Auto) (0.0-1.5) % Neut # (Auto) (1.4-5.7) K/uL Lymph # (Auto) (0.6-2.4) K/uL [place] # (Auto) (0.0-0.8) K/uL Eos # (Auto) (0.0-0.7) K/uL Baso # (Auto) (0.0-0.1) K/uL Nucleated RBC % /100WBC Nucleated RBCs # K/uL Sodium (136-145) mmol/L Potassium (3.5-5.1) mmol/L Chloride (98-107) mmol/L Carbon Dioxide (21.0-32.0) mmol/L BUN (7.0-18.0) mg/dL Creatinine (0.6-1.0) mg/dL Est Cr Clr Drug Dosing mL/min Estimated GFR (MDRD) ml/min Glucose (74-106) mg/dL POC Glucose 141 H 151 H 151 H (60-110) mg/dL Calcium (8.5-10.1) mg/dL Triglycerides (0-200) mg/dL Cholesterol (50-200) mg/dL HDL Cholesterol (40-60) mg/dL Cholesterol/HDL Ratio (3.3-6.0) Lipase (73-393) U/L 08/05/19 08/05/19 08/05/19 Range/Units 00:33 01:37 02:35 WBC (4.0-11.0) K/uL RBC (4.30-5.90) M/uL Hgb (12.0-16.0) g/dL Hct (36.0-46.0) % MCV (80.0-98.0) fL MCH (27.0-32.0) pg MCHC (31.0-37.0) g/dL RDW Std Deviation (28.0-62.0) fl RDW Coeff of Carine (11.0-15.0) % Plt Count (150-400) K/uL MPV (7.40-12.00) fL Neut % (Auto) (48.0-80.0) % Lymph % (Auto) (16.0-40.0) % [place] % (Auto) (0.0-15.0) % Eos % (Auto) (0.0-7.0) % Baso % (Auto) (0.0-1.5) % Neut # (Auto) (1.4-5.7) K/uL Lymph # (Auto) (0.6-2.4) K/uL [place] # (Auto) (0.0-0.8) K/uL Eos # (Auto) (0.0-0.7) K/uL Baso # (Auto) (0.0-0.1) K/uL Nucleated RBC % /100WBC Nucleated RBCs # K/uL Sodium (136-145) mmol/L Potassium (3.5-5.1) mmol/L Chloride (98-107) mmol/L Carbon Dioxide (21.0-32.0) mmol/L BUN (7.0-18.0) mg/dL Creatinine (0.6-1.0) mg/dL Est Cr Clr Drug Dosing mL/min Estimated GFR (MDRD) ml/min Glucose (74-106) mg/dL POC Glucose 154 H 153 H 131 H (60-110) mg/dL Calcium (8.5-10.1) mg/dL Triglycerides (0-200) mg/dL Cholesterol (50-200) mg/dL HDL Cholesterol (40-60) mg/dL Cholesterol/HDL Ratio (3.3-6.0) Lipase (73-393) U/L 08/05/19 08/05/19 08/05/19 Range/Units 03:33 04:34 05:05 WBC (4.0-11.0) K/uL RBC (4.30-5.90) M/uL Hgb (12.0-16.0) g/dL Hct (36.0-46.0) % MCV (80.0-98.0) fL MCH (27.0-32.0) pg MCHC (31.0-37.0) g/dL RDW Std Deviation (28.0-62.0) fl RDW Coeff of Carine (11.0-15.0) % Plt Count (150-400) K/uL MPV (7.40-12.00) fL Neut % (Auto) (48.0-80.0) % Lymph % (Auto) (16.0-40.0) % [place] % (Auto) (0.0-15.0) % Eos % (Auto) (0.0-7.0) % Baso % (Auto) (0.0-1.5) % Neut # (Auto) (1.4-5.7) K/uL Lymph # (Auto) (0.6-2.4) K/uL [place] # (Auto) (0.0-0.8) K/uL Eos # (Auto) (0.0-0.7) K/uL Baso # (Auto) (0.0-0.1) K/uL Nucleated RBC % /100WBC Nucleated RBCs # K/uL Sodium 138 (136-145) mmol/L Potassium 3.4 L (3.5-5.1) mmol/L Chloride 106 (98-107) mmol/L Carbon Dioxide 21.0 (21.0-32.0) mmol/L BUN 42 H (7.0-18.0) mg/dL Creatinine 3.1 H (0.6-1.0) mg/dL Est Cr Clr Drug Dosing 23.45 mL/min Estimated GFR (MDRD) 16.1 ml/min Glucose 146 H (74-106) mg/dL POC Glucose 129 H 136 H (60-110) mg/dL Calcium 7.7 L (8.5-10.1) mg/dL Triglycerides 867 H (0-200) mg/dL Cholesterol 252 H (50-200) mg/dL HDL Cholesterol 22 L (40-60) mg/dL Cholesterol/HDL Ratio 11.5 H (3.3-6.0) Lipase 1985 H (73-393) U/L 08/05/19 08/05/19 08/05/19 Range/Units 05:05 05:32 06:30 WBC 5.95 (4.0-11.0) K/uL RBC 2.54 L (4.30-5.90) M/uL Hgb 7.6 L (12.0-16.0) g/dL Hct 22.7 L (36.0-46.0) % MCV 89.4 (80.0-98.0) fL MCH 29.9 (27.0-32.0) pg MCHC 33.5 (31.0-37.0) g/dL RDW Std Deviation 49.6 (28.0-62.0) fl RDW Coeff of Carine 15 (11.0-15.0) % Plt Count 146 L (150-400) K/uL MPV 10.00 (7.40-12.00) fL Neut % (Auto) 61.1 (48.0-80.0) % Lymph % (Auto) 29.2 (16.0-40.0) % [place] % (Auto) 6.1 (0.0-15.0) % Eos % (Auto) 3.4 (0.0-7.0) % Baso % (Auto) 0.2 (0.0-1.5) % Neut # (Auto) 3.6 (1.4-5.7) K/uL Lymph # (Auto) 1.7 (0.6-2.4) K/uL [place] # (Auto) 0.4 (0.0-0.8) K/uL Eos # (Auto) 0.2 (0.0-0.7) K/uL Baso # (Auto) 0.0 (0.0-0.1) K/uL Nucleated RBC % 0.0 /100WBC Nucleated RBCs # 0 K/uL Sodium (136-145) mmol/L Potassium (3.5-5.1) mmol/L Chloride (98-107) mmol/L Carbon Dioxide (21.0-32.0) mmol/L BUN (7.0-18.0) mg/dL Creatinine (0.6-1.0) mg/dL Est Cr Clr Drug Dosing mL/min Estimated GFR (MDRD) ml/min Glucose (74-106) mg/dL POC Glucose 151 H 140 H (60-110) mg/dL Calcium (8.5-10.1) mg/dL Triglycerides (0-200) mg/dL Cholesterol (50-200) mg/dL HDL Cholesterol (40-60) mg/dL Cholesterol/HDL Ratio (3.3-6.0) Lipase (73-393) U/L 08/05/19 08/05/19 08/05/19 Range/Units 07:34 09:01 09:58 WBC (4.0-11.0) K/uL RBC (4.30-5.90) M/uL Hgb (12.0-16.0) g/dL Hct (36.0-46.0) % MCV (80.0-98.0) fL MCH (27.0-32.0) pg MCHC (31.0-37.0) g/dL RDW Std Deviation (28.0-62.0) fl RDW Coeff of Carine (11.0-15.0) % Plt Count (150-400) K/uL MPV (7.40-12.00) fL Neut % (Auto) (48.0-80.0) % Lymph % (Auto) (16.0-40.0) % [place] % (Auto) (0.0-15.0) % Eos % (Auto) (0.0-7.0) % Baso % (Auto) (0.0-1.5) % Neut # (Auto) (1.4-5.7) K/uL Lymph # (Auto) (0.6-2.4) K/uL [place] # (Auto) (0.0-0.8) K/uL Eos # (Auto) (0.0-0.7) K/uL Baso # (Auto) (0.0-0.1) K/uL Nucleated RBC % /100WBC Nucleated RBCs # K/uL Sodium (136-145) mmol/L Potassium (3.5-5.1) mmol/L Chloride (98-107) mmol/L Carbon Dioxide (21.0-32.0) mmol/L BUN (7.0-18.0) mg/dL Creatinine (0.6-1.0) mg/dL Est Cr Clr Drug Dosing mL/min Estimated GFR (MDRD) ml/min Glucose (74-106) mg/dL POC Glucose 127 H 120 H 115 H (60-110) mg/dL Calcium (8.5-10.1) mg/dL Triglycerides (0-200) mg/dL Cholesterol (50-200) mg/dL HDL Cholesterol (40-60) mg/dL Cholesterol/HDL Ratio (3.3-6.0) Lipase (73-393) U/L 08/05/19 Range/Units 10:56 WBC (4.0-11.0) K/uL RBC (4.30-5.90) M/uL Hgb (12.0-16.0) g/dL Hct (36.0-46.0) % MCV (80.0-98.0) fL MCH (27.0-32.0) pg MCHC (31.0-37.0) g/dL RDW Std Deviation (28.0-62.0) fl RDW Coeff of Carine (11.0-15.0) % Plt Count (150-400) K/uL MPV (7.40-12.00) fL Neut % (Auto) (48.0-80.0) % Lymph % (Auto) (16.0-40.0) % [place] % (Auto) (0.0-15.0) % Eos % (Auto) (0.0-7.0) % Baso % (Auto) (0.0-1.5) % Neut # (Auto) (1.4-5.7) K/uL Lymph # (Auto) (0.6-2.4) K/uL [place] # (Auto) (0.0-0.8) K/uL Eos # (Auto) (0.0-0.7) K/uL Baso # (Auto) (0.0-0.1) K/uL Nucleated RBC % /100WBC Nucleated RBCs # K/uL Sodium (136-145) mmol/L Potassium (3.5-5.1) mmol/L Chloride (98-107) mmol/L Carbon Dioxide (21.0-32.0) mmol/L BUN (7.0-18.0) mg/dL Creatinine (0.6-1.0) mg/dL Est Cr Clr Drug Dosing mL/min Estimated GFR (MDRD) ml/min Glucose (74-106) mg/dL POC Glucose 133 H (60-110) mg/dL Calcium (8.5-10.1) mg/dL Triglycerides (0-200) mg/dL Cholesterol (50-200) mg/dL HDL Cholesterol (40-60) mg/dL Cholesterol/HDL Ratio (3.3-6.0) Lipase (73-393) U/L Med Orders - Current: Current Medications Amlodipine Besylate (Norvasc) 5 mg PO DAILY [facility] Last Admin: 08/05/19 09:22 Dose: 5 mg Atorvastatin Calcium (Lipitor) 40 mg PO DAILY [facility] Last Admin: 08/05/19 09:22 Dose: 40 mg Insulin Human Regular 100 unit (/ Sodium Chloride) 100 mls @ 1 mls/hr IV DAILY [facility] Last Admin: 08/05/19 09:25 Dose: Not Given Insulin Aspart (Novolog) 0 unit SUBCUT TIDAC [facility]; Protocol Last Admin: 08/05/19 10:57 Dose: Not Given Levothyroxine Sodium (Levothyroxine) 75 mcg PO ACBREAKFAST [facility] Last Admin: 08/05/19 06:39 Dose: 75 mcg Levothyroxine Sodium (Synthroid) 200 mcg PO ACBREAKFAST [facility] Last Admin: 08/05/19 06:39 Dose: 200 mcg Morphine Sulfate (Morphine) 2 mg IVPUSH Q4H PRN PRN Reason: Pain Last Admin: 08/05/19 04:52 Dose: 2 mg Ondansetron HCl (Zofran) 4 mg IVPUSH Q4H PRN PRN Reason: Nausea/Vomiting Last Admin: 08/05/19 04:51 Dose: 4 mg Fenofibrate 200 Mg 0 each PO DAILY [facility] Last Admin: 08/05/19 09:24 Dose: Not Given Discontinued Medications Sodium Chloride (Normal Saline) 1,000 mls @ 1,000 mls/hr IV .Bolus ONE Stop: 08/03/19 19:35 Last Admin: 08/03/19 19:04 Dose: 1,000 mls/hr Lactated Ringer's (Ringers, Lactated) 1,000 mls @ 100 mls/hr IV ASDIRECTED [facility] Last Admin: 08/05/19 09:35 Dose: 100 mls/hr Insulin Human Regular 100 unit (/ Sodium Chloride) 100 mls @ 1 mls/hr IV Q2HR [facility] Last Admin: 08/04/19 15:59 Dose: Not Given Insulin Aspart (Novolog) 0 unit SUBCUT TIDAC [facility]; Protocol Last Admin: 08/04/19 06:54 Dose: 6 units Insulin Detemir (Levemir) 20 unit SUBCUT ONETIME ONE Stop: 08/03/19 21:58 Last Admin: 08/03/19 22:19 Dose: Not Given Insulin Detemir (Levemir) 30 unit SUBCUT ONETIME ONE Stop: 08/03/19 22:17 Last Admin: 08/03/19 22:32 Dose: 30 units Levothyroxine Sodium (Synthroid) 100 mcg PO ACBREAKFAST [facility] Last Admin: 08/04/19 08:56 Dose: 100 mcg Morphine Sulfate (Morphine) 4 mg IVPUSH ONETIME ONE Stop: 08/03/19 16:48 Last Admin: 08/03/19 16:58 Dose: 4 mg Morphine Sulfate (Morphine) 2 mg IVPUSH ONETIME ONE Stop: 08/03/19 21:36 Last Admin: 08/03/19 21:45 Dose: 2 mg Morphine Sulfate (Morphine) 2 mg IVPUSH Q4H PRN PRN Reason: Pain (severe 7-10) Stop: 08/04/19 21:55 Last Admin: 08/04/19 05:40 Dose: 2 mg Morphine Sulfate (Morphine) 2 mg IVPUSH Q4H PRN PRN Reason: Pain (severe 7-10) Stop: 08/04/19 21:55 Last Admin: 08/04/19 19:47 Dose: 2 mg Non-Formulary Medication (Levothyroxine) 175 mcg PO ACBREAKFAST [facility] Ondansetron HCl (Zofran) 4 mg IVPUSH ONETIME ONE Stop: 08/03/19 16:48 Last Admin: 08/03/19 16:54 Dose: 4 mg Potassium Chloride (Klor-Con M20) 40 meq PO ONETIME ONE Stop: 08/05/19 11:38 - Exam General: Alert, Oriented, Cooperative, No Acute Distress Lungs: Clear to Auscultation, Normal Respiratory Effort Cardiovascular: Regular Rate, Regular Rhythm GI/Abdominal Exam: Normal Bowel Sounds, Soft, Tender (scant tenderness) Extremities: Normal Inspection, Normal Range of Motion, Non-Tender, No Pedal Edema Neurological: No New Focal Deficit Psy/Mental Status: Alert, Normal Affect, Normal Mood Sepsis Event Note - Evaluation Sepsis Screening Result: No Definite Risk - Focused Exam Vital Signs: Vital Signs Temp Pulse Resp BP BP Pulse Ox 08/05/19 11:23 97.3 F 79 20 99/59 L 95 08/05/19 09:22 107/68 08/05/19 07:43 97.8 F 79 16 106/69 96 08/05/19 04:00 98.0 F 83 17 118/71 94 L 08/05/19 00:00 98.7 F 81 19 102/67 95 Date Exam was Performed: 08/05/19 Time Exam was Performed: 11:54 - Problem List & Annotations (1) Chronic renal disease, stage 3, moderately decreased glomerular filtration rate between 30-59 mL/min/1.73 square meter SNOMED Code(s): 609926415 Code(s): N18.3 - CHRONIC KIDNEY DISEASE, STAGE 3 (MODERATE) Status: Acute Current Visit: Yes (2) Pancreatitis SNOMED Code(s): 16276023 Code(s): K85.90 - ACUTE PANCREATITIS WITHOUT NECROSIS OR INFECTION, UNSP Status: Acute Current Visit: Yes Qualifiers: Chronicity: acute Pancreatitis type: unspecified pancreatitis type Acute pancreatitis complication: no infection or necrosis Qualified Code(s): K85.90 - Acute pancreatitis without necrosis or infection, unspecified (3) Diabetes SNOMED Code(s): 93462812 Code(s): E11.9 - TYPE 2 DIABETES MELLITUS WITHOUT COMPLICATIONS Status: Acute Current Visit: No (4) History of diabetes mellitus SNOMED Code(s): 244931482 Code(s): Z86.39 - PERSONAL HISTORY OF ENDO, NUTRITIONAL AND METABOLIC DISEASE Status: Acute Current Visit: No - Problem List Review Problem List Initiated/Reviewed/Updated: Yes - My Orders Last 24 Hours: My Active Orders 08/04/19 11:30 Insulin Aspart [NovoLOG] See Protocol SUBCUT TIDAC 08/04/19 12:30 Insulin Regular, Human [NovoLIN R] 100 unit Sodium Chloride 0.9% [Normal Saline] 99 ml IV DAILY 08/05/19 15:00 HEMOGLOBIN/HEMATOCRIT,HH [HEME] Routine 08/05/19 Lunch Clear Liquid Diet [DIET] - Plan Plan:: This 49 year old female female admitted with pancreatitis secondary to hypertriglyceridemia 1. Acute pancreatitis secondary to hypertriglyceridemia- Increase diet to CL today. DC IVFs, pain/nausea control. Start insulin drip. Patient already on max dose of fenofibrate at home. 2. CKD- stable, continue to monitor 3. DMII- BS improved, 120-200s overnight. Continue insulin drip for pancreatitis , monitor sugar q 1 hr. Will reassess this evening for long acting dose. 4. Chronic conditions- hypothyroidism, hyperlipidemia- continue home meds, restart fenofibrate tomorrow 5. Anemia: May be related to dilution and IVFs, will recheck this afternoon. No active bleeding
[2019-08-05] MEDS ORDERED: oxyCODONE 5 MG Tab PO PRN (17:54)
[2019-08-06 06:04] LABS: BLOOD UREA NITROGEN,BUN 37 mg/dL (7.0-18.0); CARBON DIOXIDE,CO2 19.4 mmol/L (21.0-32.0); CHLORIDE,CL 105 mmol/L (98-107); GLUCOSE RANDOM 148 mg/dL (74-106); POTASSIUM,K 3.5 mmol/L (3.5-5.1); SODIUM,NA 138 mmol/L (136-145)
[2019-08-06] MEDS: Levothyroxine 75 MCG Tab PO SCH (06:41)
[2019-08-06] MEDS: Levothyroxine 100 MCG Tab PO SCH (06:41)
[2019-08-06] MEDS: Insulin Aspart 100 Units/ML 3 ML Pen SUBCUT SCH ×3 (07:56→18:02)
[2019-08-06] MEDS: amLODIPine 5 MG Tab PO SCH (09:31)
[2019-08-06] MEDS: atorvaSTATin 40 MG Tab PO SCH (09:32)
[2019-08-06] MEDS: FENOFIBRATE 200 MG PO SCH (09:33)
[2019-08-06 11:18] LABS: HEMOGLOBIN A1C 12.2 % (4.5-6.2)
--- NOTE | 2019-08-06 12:33 | PCM.DCSUM1 ---
<Estefania Cabrera - Last Filed: 08/06/19 17:48> Discharge Summary - Hospital Course Free Text/Narrative:: Admission Date: 08/03/19 Discharge Date:08/06/19 Admission Diagnosis: 1. Acute pancreatitis 2. CKD 3. DMII 4. Chronic conditions- hypothyroidism and hyperlipidemia Discharge Diagnosis: 1. Acute pancreatitis secondary to hypertriglyceridemia 2. CKD 3. DMII uncontrolled 4. Chronic conditions- hypothyroidism and hyperlipidemia Procedures: None Consults: Diabetic nurse educator Hospital Course: The patient is a 49 year old female who presented to the ER with acute abdominal pain. Workup in the ER showed no white count, chronic anemia with hemoglobin of 9.8, chronic elevated BUN/Cr of 56/3.2, elevated lipase of [address] ab/pelvis which showed inflammation around pancreas. Patient was admitted to medical surgical floor. Patient had 2 previous episode of pancreatitis caused by hypertriglyceridemia and hx of cholecystectomy. Lipid panel was obtained and TG were 3326. Patient was kept NPO, started on IVF and pain control. The next day her lipase increased to 7310 and she was started on insulin drip to bring down TG. TG were trended and trended down to 738 at time of discharge. Patient already on max dose of fenofibrate and Lipitor On day 3 of admission, lipase was down to 1985, patient felt better and she was transitioned to clear liquid diet. Patient's blood sugars improved with insulin drip but HA1c was 12.2 %. Diabetic nurse educator was consulted. She had planned to start patient on metformin and long acting insulin but hte patient refused. She states she is going to stay on current regiment but was willing to follow up with [facility] as an outpatient. Patient has CKD at baseline but kidney function slightly improved to BUN of 37 and Cr of 3.1. Patient's hemoglobin was also monitored, with hydration it decreased to 7.6 but maintained at that level. Patient denies any episode of bleeding or black stool. By day of discharge patient was wanting more food and wanted to go home. Disposition: Home Discharge Condition: vitals stable, tolerating oral diet, ambulating without difficulty, symptom improvement Discharge Instructions: advance diet as tolerated, activity as tolerated, take medications as prescribed. Symptoms to report to physician include fever/chills , chest pain, shortness of breath, abdominal pain, erythema, drainage/discharge , or not improving as expected. Discharge Medications: Levothyroxine 275 mcg PO ACBREAKFAST 09/06/16 [History] Fenofibrate Nanocrystallized [Tricor] 200 mg PO DAILY 08/04/19 [History] Insulin NPH/Insulin Reg,Human [Novolin 70-30] 100 unit SUBCUT BID 08/04/19 [ History] amLODIPine [Norvasc] 5 mg PO BEDTIME 08/04/19 [History] atorvaSTATin [Lipitor] 40 mg PO DAILY 08/04/19 [History] glipiZIDE [Glucotrol] 5 mg PO BEDTIME 08/04/19 [History] glipiZIDE [Glucotrol] 10 mg PO QAM 08/04/19 [History] Follow-up: 1. PCP- Dr. Fabrice Burton 2. [facility] - Discharge Data Discharge Date: 08/06/19 Discharge Disposition: Home, Self-Care 01 Condition: Stable - Referral to Home Health Primary Care Physician: Haris Plaza MD - Patient Summary/Data Consults: Consultations 08/06/19 11:25 Consult to Diabetic Nurse Specialist [CONS] Routine - Discharge Plan *PRESCRIPTION DRUG MONITORING PROGRAM REVIEWED*: Yes *COPY OF PRESCRIPTION DRUG MONITORING REPORT IN PATIENT ISAURO: Yes Home Medications: Home Meds Levothyroxine 275 mcg PO ACBREAKFAST 09/06/16 [History] Fenofibrate Nanocrystallized [Tricor] 200 mg PO DAILY 08/04/19 [History] Insulin NPH/Insulin Reg,Human [Novolin 70-30] 100 unit SUBCUT BID 08/04/19 [ History] amLODIPine [Norvasc] 5 mg PO BEDTIME 08/04/19 [History] atorvaSTATin [Lipitor] 40 mg PO DAILY 08/04/19 [History] glipiZIDE [Glucotrol] 5 mg PO BEDTIME 08/04/19 [History] glipiZIDE [Glucotrol] 10 mg PO QAM 08/04/19 [History] Patient Handouts: Type 2 Diabetes Mellitus, Diagnosis, Adult, Acute Pancreatitis, [id number] Referrals: Celestino Landeros,John [Ordering Only Provider] - Lolita Burton MD [Resident] - 08/13/19 2:30 pm (This was not able to be made with Dr. Plaza, because his schedule to full for the next 3 weeks. ) - Discharge Summary/Plan Comment DC Time >30 min.: No - Patient Data Vitals - Most Recent: Last Vital Signs Temp 97.1 F 08/06/19 12:00 Pulse 83 08/06/19 12:00 Resp 20 08/06/19 12:00 BP 125/68 08/06/19 12:00 Pulse Ox 98 08/06/19 12:00 Weight - Most Recent: 107 kg I&O - Last 24 hours: Intake & Output 08/05/19 08/06/19 08/06/19 22:59 06:59 14:59 Intake Total 942 1292 Output Total 700 1500 Balance 242 -208 Lab Results - Last 24 hrs: Laboratory Results - last 24 hr 08/05/19 08/05/19 08/05/19 Range/Units 13:03 14:03 15:00 WBC (4.0-11.0) K/uL RBC (4.30-5.90) M/uL Hgb 7.5 L (12.0-16.0) g/dL Hct 21.8 L (36.0-46.0) % MCV (80.0-98.0) fL MCH (27.0-32.0) pg MCHC (31.0-37.0) g/dL RDW Std Deviation (28.0-62.0) fl RDW Coeff of Carine (11.0-15.0) % Plt Count (150-400) K/uL MPV (7.40-12.00) fL Neut % (Auto) (48.0-80.0) % Lymph % (Auto) (16.0-40.0) % [place] % (Auto) (0.0-15.0) % Eos % (Auto) (0.0-7.0) % Baso % (Auto) (0.0-1.5) % Neut # (Auto) (1.4-5.7) K/uL Lymph # (Auto) (0.6-2.4) K/uL [place] # (Auto) (0.0-0.8) K/uL Eos # (Auto) (0.0-0.7) K/uL Baso # (Auto) (0.0-0.1) K/uL Nucleated RBC % /100WBC Nucleated RBCs # K/uL Sodium (136-145) mmol/L Potassium (3.5-5.1) mmol/L Chloride (98-107) mmol/L Carbon Dioxide (21.0-32.0) mmol/L BUN (7.0-18.0) mg/dL Creatinine (0.6-1.0) mg/dL Est Cr Clr Drug Dosing mL/min Estimated GFR (MDRD) ml/min Glucose (74-106) mg/dL POC Glucose 183 H 192 H (60-110) mg/dL Hemoglobin A1c (4.5-6.2) % Calcium (8.5-10.1) mg/dL Triglycerides (0-200) mg/dL Cholesterol (50-200) mg/dL HDL Cholesterol (40-60) mg/dL Cholesterol/HDL Ratio (3.3-6.0) 08/05/19 08/05/19 08/05/19 Range/Units 15:18 16:07 16:59 WBC (4.0-11.0) K/uL RBC (4.30-5.90) M/uL Hgb (12.0-16.0) g/dL Hct (36.0-46.0) % MCV (80.0-98.0) fL MCH (27.0-32.0) pg MCHC (31.0-37.0) g/dL RDW Std Deviation (28.0-62.0) fl RDW Coeff of Carine (11.0-15.0) % Plt Count (150-400) K/uL MPV (7.40-12.00) fL Neut % (Auto) (48.0-80.0) % Lymph % (Auto) (16.0-40.0) % [place] % (Auto) (0.0-15.0) % Eos % (Auto) (0.0-7.0) % Baso % (Auto) (0.0-1.5) % Neut # (Auto) (1.4-5.7) K/uL Lymph # (Auto) (0.6-2.4) K/uL [place] # (Auto) (0.0-0.8) K/uL Eos # (Auto) (0.0-0.7) K/uL Baso # (Auto) (0.0-0.1) K/uL Nucleated RBC % /100WBC Nucleated RBCs # K/uL Sodium (136-145) mmol/L Potassium (3.5-5.1) mmol/L Chloride (98-107) mmol/L Carbon Dioxide (21.0-32.0) mmol/L BUN (7.0-18.0) mg/dL Creatinine (0.6-1.0) mg/dL Est Cr Clr Drug Dosing mL/min Estimated GFR (MDRD) ml/min Glucose (74-106) mg/dL POC Glucose 162 H 153 H 141 H (60-110) mg/dL Hemoglobin A1c (4.5-6.2) % Calcium (8.5-10.1) mg/dL Triglycerides (0-200) mg/dL Cholesterol (50-200) mg/dL HDL Cholesterol (40-60) mg/dL Cholesterol/HDL Ratio (3.3-6.0) 08/05/19 08/05/19 08/05/19 Range/Units 18:01 19:06 19:42 WBC (4.0-11.0) K/uL RBC (4.30-5.90) M/uL Hgb (12.0-16.0) g/dL Hct (36.0-46.0) % MCV (80.0-98.0) fL MCH (27.0-32.0) pg MCHC (31.0-37.0) g/dL RDW Std Deviation (28.0-62.0) fl RDW Coeff of Carine (11.0-15.0) % Plt Count (150-400) K/uL MPV (7.40-12.00) fL Neut % (Auto) (48.0-80.0) % Lymph % (Auto) (16.0-40.0) % [place] % (Auto) (0.0-15.0) % Eos % (Auto) (0.0-7.0) % Baso % (Auto) (0.0-1.5) % Neut # (Auto) (1.4-5.7) K/uL Lymph # (Auto) (0.6-2.4) K/uL [place] # (Auto) (0.0-0.8) K/uL Eos # (Auto) (0.0-0.7) K/uL Baso # (Auto) (0.0-0.1) K/uL Nucleated RBC % /100WBC Nucleated RBCs # K/uL Sodium (136-145) mmol/L Potassium (3.5-5.1) mmol/L Chloride (98-107) mmol/L Carbon Dioxide (21.0-32.0) mmol/L BUN (7.0-18.0) mg/dL Creatinine (0.6-1.0) mg/dL Est Cr Clr Drug Dosing mL/min Estimated GFR (MDRD) ml/min Glucose (74-106) mg/dL POC Glucose 138 H 178 H 185 H (60-110) mg/dL Hemoglobin A1c (4.5-6.2) % Calcium (8.5-10.1) mg/dL Triglycerides (0-200) mg/dL Cholesterol (50-200) mg/dL HDL Cholesterol (40-60) mg/dL Cholesterol/HDL Ratio (3.3-6.0) 08/05/19 08/05/19 08/05/19 Range/Units 20:51 21:54 22:59 WBC (4.0-11.0) K/uL RBC (4.30-5.90) M/uL Hgb (12.0-16.0) g/dL Hct (36.0-46.0) % MCV (80.0-98.0) fL MCH (27.0-32.0) pg MCHC (31.0-37.0) g/dL RDW Std Deviation (28.0-62.0) fl RDW Coeff of Carine (11.0-15.0) % Plt Count (150-400) K/uL MPV (7.40-12.00) fL Neut % (Auto) (48.0-80.0) % Lymph % (Auto) (16.0-40.0) % [place] % (Auto) (0.0-15.0) % Eos % (Auto) (0.0-7.0) % Baso % (Auto) (0.0-1.5) % Neut # (Auto) (1.4-5.7) K/uL Lymph # (Auto) (0.6-2.4) K/uL [place] # (Auto) (0.0-0.8) K/uL Eos # (Auto) (0.0-0.7) K/uL Baso # (Auto) (0.0-0.1) K/uL Nucleated RBC % /100WBC Nucleated RBCs # K/uL Sodium (136-145) mmol/L Potassium (3.5-5.1) mmol/L Chloride (98-107) mmol/L Carbon Dioxide (21.0-32.0) mmol/L BUN (7.0-18.0) mg/dL Creatinine (0.6-1.0) mg/dL Est Cr Clr Drug Dosing mL/min Estimated GFR (MDRD) ml/min Glucose (74-106) mg/dL POC Glucose 200 H 166 H 179 H (60-110) mg/dL Hemoglobin A1c (4.5-6.2) % Calcium (8.5-10.1) mg/dL Triglycerides (0-200) mg/dL Cholesterol (50-200) mg/dL HDL Cholesterol (40-60) mg/dL Cholesterol/HDL Ratio (3.3-6.0) 08/06/19 08/06/19 08/06/19 Range/Units 00:02 01:18 02:19 WBC (4.0-11.0) K/uL RBC (4.30-5.90) M/uL Hgb (12.0-16.0) g/dL Hct (36.0-46.0) % MCV (80.0-98.0) fL MCH (27.0-32.0) pg MCHC (31.0-37.0) g/dL RDW Std Deviation (28.0-62.0) fl RDW Coeff of Carine (11.0-15.0) % Plt Count (150-400) K/uL MPV (7.40-12.00) fL Neut % (Auto) (48.0-80.0) % Lymph % (Auto) (16.0-40.0) % [place] % (Auto) (0.0-15.0) % Eos % (Auto) (0.0-7.0) % Baso % (Auto) (0.0-1.5) % Neut # (Auto) (1.4-5.7) K/uL Lymph # (Auto) (0.6-2.4) K/uL [place] # (Auto) (0.0-0.8) K/uL Eos # (Auto) (0.0-0.7) K/uL Baso # (Auto) (0.0-0.1) K/uL Nucleated RBC % /100WBC Nucleated RBCs # K/uL Sodium (136-145) mmol/L Potassium (3.5-5.1) mmol/L Chloride (98-107) mmol/L Carbon Dioxide (21.0-32.0) mmol/L BUN (7.0-18.0) mg/dL Creatinine (0.6-1.0) mg/dL Est Cr Clr Drug Dosing mL/min Estimated GFR (MDRD) ml/min Glucose (74-106) mg/dL POC Glucose 169 H 149 H 139 H (60-110) mg/dL Hemoglobin A1c (4.5-6.2) % Calcium (8.5-10.1) mg/dL Triglycerides (0-200) mg/dL Cholesterol (50-200) mg/dL HDL Cholesterol (40-60) mg/dL Cholesterol/HDL Ratio (3.3-6.0) 08/06/19 08/06/19 08/06/19 Range/Units 03:05 04:23 05:04 WBC (4.0-11.0) K/uL RBC (4.30-5.90) M/uL Hgb (12.0-16.0) g/dL Hct (36.0-46.0) % MCV (80.0-98.0) fL MCH (27.0-32.0) pg MCHC (31.0-37.0) g/dL RDW Std Deviation (28.0-62.0) fl RDW Coeff of Carine (11.0-15.0) % Plt Count (150-400) K/uL MPV (7.40-12.00) fL Neut % (Auto) (48.0-80.0) % Lymph % (Auto) (16.0-40.0) % [place] % (Auto) (0.0-15.0) % Eos % (Auto) (0.0-7.0) % Baso % (Auto) (0.0-1.5) % Neut # (Auto) (1.4-5.7) K/uL Lymph # (Auto) (0.6-2.4) K/uL [place] # (Auto) (0.0-0.8) K/uL Eos # (Auto) (0.0-0.7) K/uL Baso # (Auto) (0.0-0.1) K/uL Nucleated RBC % /100WBC Nucleated RBCs # K/uL Sodium (136-145) mmol/L Potassium (3.5-5.1) mmol/L Chloride (98-107) mmol/L Carbon Dioxide (21.0-32.0) mmol/L BUN (7.0-18.0) mg/dL Creatinine (0.6-1.0) mg/dL Est Cr Clr Drug Dosing mL/min Estimated GFR (MDRD) ml/min Glucose (74-106) mg/dL POC Glucose 139 H 131 H 136 H (60-110) mg/dL Hemoglobin A1c (4.5-6.2) % Calcium (8.5-10.1) mg/dL Triglycerides (0-200) mg/dL Cholesterol (50-200) mg/dL HDL Cholesterol (40-60) mg/dL Cholesterol/HDL Ratio (3.3-6.0) 08/06/19 08/06/19 08/06/19 Range/Units 05:23 05:23 05:23 WBC 4.44 (4.0-11.0) K/uL RBC 2.55 L (4.30-5.90) M/uL Hgb 7.6 L (12.0-16.0) g/dL Hct 22.9 L (36.0-46.0) % MCV 89.8 (80.0-98.0) fL MCH 29.8 (27.0-32.0) pg MCHC 33.2 (31.0-37.0) g/dL RDW Std Deviation 49.1 (28.0-62.0) fl RDW Coeff of Carine 15 (11.0-15.0) % Plt Count 147 L (150-400) K/uL MPV 10.00 (7.40-12.00) fL Neut % (Auto) 55.2 (48.0-80.0) % Lymph % (Auto) 33.3 (16.0-40.0) % [place] % (Auto) 7.0 (0.0-15.0) % Eos % (Auto) 4.3 (0.0-7.0) % Baso % (Auto) 0.2 (0.0-1.5) % Neut # (Auto) 2.5 (1.4-5.7) K/uL Lymph # (Auto) 1.5 (0.6-2.4) K/uL [place] # (Auto) 0.3 (0.0-0.8) K/uL Eos # (Auto) 0.2 (0.0-0.7) K/uL Baso # (Auto) 0.0 (0.0-0.1) K/uL Nucleated RBC % 0.0 /100WBC Nucleated RBCs # 0 K/uL Sodium 138 (136-145) mmol/L Potassium 3.5 (3.5-5.1) mmol/L Chloride 105 (98-107) mmol/L Carbon Dioxide 19.4 L (21.0-32.0) mmol/L BUN 37 H (7.0-18.0) mg/dL Creatinine 3.1 H (0.6-1.0) mg/dL Est Cr Clr Drug Dosing 23.45 mL/min Estimated GFR (MDRD) 16.1 ml/min Glucose 148 H (74-106) mg/dL POC Glucose (60-110) mg/dL Hemoglobin A1c 12.2 H (4.5-6.2) % Calcium 7.5 L (8.5-10.1) mg/dL Triglycerides 738 H (0-200) mg/dL Cholesterol 243 H (50-200) mg/dL HDL Cholesterol 22 L (40-60) mg/dL Cholesterol/HDL Ratio 11.0 H (3.3-6.0) 08/06/19 08/06/19 08/06/19 Range/Units 06:15 07:17 07:58 WBC (4.0-11.0) K/uL RBC (4.30-5.90) M/uL Hgb (12.0-16.0) g/dL Hct (36.0-46.0) % MCV (80.0-98.0) fL MCH (27.0-32.0) pg MCHC (31.0-37.0) g/dL RDW Std Deviation (28.0-62.0) fl RDW Coeff of Carine (11.0-15.0) % Plt Count (150-400) K/uL MPV (7.40-12.00) fL Neut % (Auto) (48.0-80.0) % Lymph % (Auto) (16.0-40.0) % [place] % (Auto) (0.0-15.0) % Eos % (Auto) (0.0-7.0) % Baso % (Auto) (0.0-1.5) % Neut # (Auto) (1.4-5.7) K/uL Lymph # (Auto) (0.6-2.4) K/uL [place] # (Auto) (0.0-0.8) K/uL Eos # (Auto) (0.0-0.7) K/uL Baso # (Auto) (0.0-0.1) K/uL Nucleated RBC % /100WBC Nucleated RBCs # K/uL Sodium (136-145) mmol/L Potassium (3.5-5.1) mmol/L Chloride (98-107) mmol/L Carbon Dioxide (21.0-32.0) mmol/L BUN (7.0-18.0) mg/dL Creatinine (0.6-1.0) mg/dL Est Cr Clr Drug Dosing mL/min Estimated GFR (MDRD) ml/min Glucose (74-106) mg/dL POC Glucose 139 H 132 H 156 H (60-110) mg/dL Hemoglobin A1c (4.5-6.2) % Calcium (8.5-10.1) mg/dL Triglycerides (0-200) mg/dL Cholesterol (50-200) mg/dL HDL Cholesterol (40-60) mg/dL Cholesterol/HDL Ratio (3.3-6.0) 08/06/19 08/06/19 08/06/19 Range/Units 09:08 10:00 11:06 WBC (4.0-11.0) K/uL RBC (4.30-5.90) M/uL Hgb (12.0-16.0) g/dL Hct (36.0-46.0) % MCV (80.0-98.0) fL MCH (27.0-32.0) pg MCHC (31.0-37.0) g/dL RDW Std Deviation (28.0-62.0) fl RDW Coeff of Carine (11.0-15.0) % Plt Count (150-400) K/uL MPV (7.40-12.00) fL Neut % (Auto) (48.0-80.0) % Lymph % (Auto) (16.0-40.0) % [place] % (Auto) (0.0-15.0) % Eos % (Auto) (0.0-7.0) % Baso % (Auto) (0.0-1.5) % Neut # (Auto) (1.4-5.7) K/uL Lymph # (Auto) (0.6-2.4) K/uL [place] # (Auto) (0.0-0.8) K/uL Eos # (Auto) (0.0-0.7) K/uL Baso # (Auto) (0.0-0.1) K/uL Nucleated RBC % /100WBC Nucleated RBCs # K/uL Sodium (136-145) mmol/L Potassium (3.5-5.1) mmol/L Chloride (98-107) mmol/L Carbon Dioxide (21.0-32.0) mmol/L BUN (7.0-18.0) mg/dL Creatinine (0.6-1.0) mg/dL Est Cr Clr Drug Dosing mL/min Estimated GFR (MDRD) ml/min Glucose (74-106) mg/dL POC Glucose 171 H 189 H 208 H (60-110) mg/dL Hemoglobin A1c (4.5-6.2) % Calcium (8.5-10.1) mg/dL Triglycerides (0-200) mg/dL Cholesterol (50-200) mg/dL HDL Cholesterol (40-60) mg/dL Cholesterol/HDL Ratio (3.3-6.0) / Range/Units 11:59 WBC (4.0-11.0) K/uL RBC (4.30-5.90) M/uL Hgb (12.0-16.0) g/dL Hct (36.0-46.0) % MCV (80.0-98.0) fL MCH (27.0-32.0) pg MCHC (31.0-37.0) g/dL RDW Std Deviation (28.0-62.0) fl RDW Coeff of Carine (11.0-15.0) % Plt Count (150-400) K/uL MPV (7.40-12.00) fL Neut % (Auto) (48.0-80.0) % Lymph % (Auto) (16.0-40.0) % [place] % (Auto) (0.0-15.0) % Eos % (Auto) (0.0-7.0) % Baso % (Auto) (0.0-1.5) % Neut # (Auto) (1.4-5.7) K/uL Lymph # (Auto) (0.6-2.4) K/uL [place] # (Auto) (0.0-0.8) K/uL Eos # (Auto) (0.0-0.7) K/uL Baso # (Auto) (0.0-0.1) K/uL Nucleated RBC % /100WBC Nucleated RBCs # K/uL Sodium (136-145) mmol/L Potassium (3.5-5.1) mmol/L Chloride (98-107) mmol/L Carbon Dioxide (21.0-32.0) mmol/L BUN (7.0-18.0) mg/dL Creatinine (0.6-1.0) mg/dL Est Cr Clr Drug Dosing mL/min Estimated GFR (MDRD) ml/min Glucose (74-106) mg/dL POC Glucose 179 H (60-110) mg/dL Hemoglobin A1c (4.5-6.2) % Calcium (8.5-10.1) mg/dL Triglycerides (0-200) mg/dL Cholesterol (50-200) mg/dL HDL Cholesterol (40-60) mg/dL Cholesterol/HDL Ratio (3.3-6.0) Med Orders - Current: Current Medications Amlodipine Besylate (Norvasc) 5 mg PO DAILY [facility] Last Admin: 08/06/19 09:31 Dose: 5 mg Atorvastatin Calcium (Lipitor) 40 mg PO DAILY [facility] Last Admin: 08/06/19 09:32 Dose: 40 mg Insulin Human Regular 100 unit (/ Sodium Chloride) 100 mls @ 1 mls/hr IV Q24H [facility] Last Admin: 08/05/19 13:25 Dose: 1 unit/hr, 1 mls/hr Insulin Aspart (Novolog) 0 unit SUBCUT TIDAC [facility]; Protocol Last Admin: 08/06/19 11:50 Dose: 4 unit Levothyroxine Sodium (Levothyroxine) 75 mcg PO ACBREAKFAST [facility] Last Admin: 08/06/19 06:41 Dose: 75 mcg Levothyroxine Sodium (Synthroid) 200 mcg PO ACBREAKFAST [facility] Last Admin: 08/06/19 06:41 Dose: 200 mcg Ondansetron HCl (Zofran) 4 mg IVPUSH Q4H PRN PRN Reason: Nausea/Vomiting Last Admin: 08/05/19 04:51 Dose: 4 mg Oxycodone HCl (Oxycodone) 5 mg PO Q4H PRN PRN Reason: Pain (severe 7-10) Last Admin: 08/05/19 18:07 Dose: 5 mg Fenofibrate 200 Mg 0 each PO DAILY [facility] Last Admin: 08/06/19 09:33 Dose: Not Given Discontinued Medications Sodium Chloride (Normal Saline) 1,000 mls @ 1,000 mls/hr IV .Bolus ONE Stop: 08/03/19 19:35 Last Admin: 08/03/19 19:04 Dose: 1,000 mls/hr Lactated Ringer's (Ringers, Lactated) 1,000 mls @ 100 mls/hr IV ASDIRECTED [facility] Last Admin: 08/05/19 09:35 Dose: 100 mls/hr Insulin Human Regular 100 unit (/ Sodium Chloride) 100 mls @ 1 mls/hr IV Q2HR [facility] Last Admin: 08/04/19 15:59 Dose: Not Given Insulin Human Regular 100 unit (/ Sodium Chloride) 100 mls @ 1 mls/hr IV DAILY [facility] Last Admin: 08/05/19 09:25 Dose: Not Given Insulin Aspart (Novolog) 0 unit SUBCUT TIDAC [facility]; Protocol Last Admin: 08/04/19 06:54 Dose: 6 units Insulin Detemir (Levemir) 20 unit SUBCUT ONETIME ONE Stop: 08/03/19 21:58 Last Admin: 08/03/19 22:19 Dose: Not Given Insulin Detemir (Levemir) 30 unit SUBCUT ONETIME ONE Stop: 08/03/19 22:17 Last Admin: 08/03/19 22:32 Dose: 30 units Levothyroxine Sodium (Synthroid) 100 mcg PO ACBREAKFAST [facility] Last Admin: 08/04/19 08:56 Dose: 100 mcg Morphine Sulfate (Morphine) 4 mg IVPUSH ONETIME ONE Stop: 08/03/19 16:48 Last Admin: 08/03/19 16:58 Dose: 4 mg Morphine Sulfate (Morphine) 2 mg IVPUSH ONETIME ONE Stop: 08/03/19 21:36 Last Admin: 08/03/19 21:45 Dose: 2 mg Morphine Sulfate (Morphine) 2 mg IVPUSH Q4H PRN PRN Reason: Pain (severe 7-10) Stop: 08/04/19 21:55 Last Admin: 08/04/19 05:40 Dose: 2 mg Morphine Sulfate (Morphine) 2 mg IVPUSH Q4H PRN PRN Reason: Pain (severe 7-10) Stop: 08/04/19 21:55 Last Admin: 08/04/19 19:47 Dose: 2 mg Morphine Sulfate (Morphine) 2 mg IVPUSH Q4H PRN PRN Reason: Pain Last Admin: 08/05/19 04:52 Dose: 2 mg Non-Formulary Medication (Levothyroxine) 175 mcg PO ACBREAKFAST KIMBERLY Ondansetron HCl (Zofran) 4 mg IVPUSH ONETIME ONE Stop: 08/03/19 16:48 Last Admin: 08/03/19 16:54 Dose: 4 mg Potassium Chloride (Klor-Con M20) 40 meq PO ONETIME ONE Stop: 08/05/19 11:38 Last Admin: 08/05/19 12:02 Dose: 40 meq <Carl Hoffman - Last Filed: 08/06/19 19:12> Discharge Summary - Referral to Home Health Primary Care Physician: Haris Plaza MD - Patient Summary/Data Consults: Consultations 08/06/19 11:25 Consult to Diabetic Nurse Specialist [CONS] Routine - Patient Data Vitals - Most Recent: Last Vital Signs Temp 35.9 C 08/06/19 16:00 Pulse 82 08/06/19 16:00 Resp 22 H 08/06/19 16:00 BP 120/67 08/06/19 16:00 Pulse Ox 98 08/06/19 16:00 I&O - Last 24 hours: Intake & Output 08/06/19 08/06/19 08/06/19 06:59 14:59 22:59 Intake Total 1292 10 2200 Output Total 1500 2300 Balance -208 10 -100 Lab Results - Last 24 hrs: Laboratory Results - last 24 hr 08/05/19 08/05/19 08/05/19 Range/Units 19:42 20:51 21:54 WBC (4.0-11.0) K/uL RBC (4.30-5.90) M/uL Hgb (12.0-16.0) g/dL Hct (36.0-46.0) % MCV (80.0-98.0) fL MCH (27.0-32.0) pg MCHC (31.0-37.0) g/dL RDW Std Deviation (28.0-62.0) fl RDW Coeff of Carine (11.0-15.0) % Plt Count (150-400) K/uL MPV (7.40-12.00) fL Neut % (Auto) (48.0-80.0) % Lymph % (Auto) (16.0-40.0) % [place] % (Auto) (0.0-15.0) % Eos % (Auto) (0.0-7.0) % Baso % (Auto) (0.0-1.5) % Neut # (Auto) (1.4-5.7) K/uL Lymph # (Auto) (0.6-2.4) K/uL [place] # (Auto) (0.0-0.8) K/uL Eos # (Auto) (0.0-0.7) K/uL Baso # (Auto) (0.0-0.1) K/uL Nucleated RBC % /100WBC Nucleated RBCs # K/uL Sodium (136-145) mmol/L Potassium (3.5-5.1) mmol/L Chloride (98-107) mmol/L Carbon Dioxide (21.0-32.0) mmol/L BUN (7.0-18.0) mg/dL Creatinine (0.6-1.0) mg/dL Est Cr Clr Drug Dosing mL/min Estimated GFR (MDRD) ml/min Glucose (74-106) mg/dL POC Glucose 185 H 200 H 166 H (60-110) mg/dL Hemoglobin A1c (4.5-6.2) % Calcium (8.5-10.1) mg/dL Triglycerides (0-200) mg/dL Cholesterol (50-200) mg/dL HDL Cholesterol (40-60) mg/dL Cholesterol/HDL Ratio (3.3-6.0) 08/05/19 08/06/19 08/06/19 Range/Units 22:59 00:02 01:18 WBC (4.0-11.0) K/uL RBC (4.30-5.90) M/uL Hgb (12.0-16.0) g/dL Hct (36.0-46.0) % MCV (80.0-98.0) fL MCH (27.0-32.0) pg MCHC (31.0-37.0) g/dL RDW Std Deviation (28.0-62.0) fl RDW Coeff of Carine (11.0-15.0) % Plt Count (150-400) K/uL MPV (7.40-12.00) fL Neut % (Auto) (48.0-80.0) % Lymph % (Auto) (16.0-40.0) % [place] % (Auto) (0.0-15.0) % Eos % (Auto) (0.0-7.0) % Baso % (Auto) (0.0-1.5) % Neut # (Auto) (1.4-5.7) K/uL Lymph # (Auto) (0.6-2.4) K/uL [place] # (Auto) (0.0-0.8) K/uL Eos # (Auto) (0.0-0.7) K/uL Baso # (Auto) (0.0-0.1) K/uL Nucleated RBC % /100WBC Nucleated RBCs # K/uL Sodium (136-145) mmol/L Potassium (3.5-5.1) mmol/L Chloride (98-107) mmol/L Carbon Dioxide (21.0-32.0) mmol/L BUN (7.0-18.0) mg/dL Creatinine (0.6-1.0) mg/dL Est Cr Clr Drug Dosing mL/min Estimated GFR (MDRD) ml/min Glucose (74-106) mg/dL POC Glucose 179 H 169 H 149 H (60-110) mg/dL Hemoglobin A1c (4.5-6.2) % Calcium (8.5-10.1) mg/dL Triglycerides (0-200) mg/dL Cholesterol (50-200) mg/dL HDL Cholesterol (40-60) mg/dL Cholesterol/HDL Ratio (3.3-6.0) 08/06/19 08/06/19 08/06/19 Range/Units 02:19 03:05 04:23 WBC (4.0-11.0) K/uL RBC (4.30-5.90) M/uL Hgb (12.0-16.0) g/dL Hct (36.0-46.0) % MCV (80.0-98.0) fL MCH (27.0-32.0) pg MCHC (31.0-37.0) g/dL RDW Std Deviation (28.0-62.0) fl RDW Coeff of Carine (11.0-15.0) % Plt Count (150-400) K/uL MPV (7.40-12.00) fL Neut % (Auto) (48.0-80.0) % Lymph % (Auto) (16.0-40.0) % [place] % (Auto) (0.0-15.0) % Eos % (Auto) (0.0-7.0) % Baso % (Auto) (0.0-1.5) % Neut # (Auto) (1.4-5.7) K/uL Lymph # (Auto) (0.6-2.4) K/uL [place] # (Auto) (0.0-0.8) K/uL Eos # (Auto) (0.0-0.7) K/uL Baso # (Auto) (0.0-0.1) K/uL Nucleated RBC % /100WBC Nucleated RBCs # K/uL Sodium (136-145) mmol/L Potassium (3.5-5.1) mmol/L Chloride (98-107) mmol/L Carbon Dioxide (21.0-32.0) mmol/L BUN (7.0-18.0) mg/dL Creatinine (0.6-1.0) mg/dL Est Cr Clr Drug Dosing mL/min Estimated GFR (MDRD) ml/min Glucose (74-106) mg/dL POC Glucose 139 H 139 H 131 H (60-110) mg/dL Hemoglobin A1c (4.5-6.2) % Calcium (8.5-10.1) mg/dL Triglycerides (0-200) mg/dL Cholesterol (50-200) mg/dL HDL Cholesterol (40-60) mg/dL Cholesterol/HDL Ratio (3.3-6.0) 08/06/19 08/06/19 08/06/19 Range/Units 05:04 05:23 05:23 WBC 4.44 (4.0-11.0) K/uL RBC 2.55 L (4.30-5.90) M/uL Hgb 7.6 L (12.0-16.0) g/dL Hct 22.9 L (36.0-46.0) % MCV 89.8 (80.0-98.0) fL MCH 29.8 (27.0-32.0) pg MCHC 33.2 (31.0-37.0) g/dL RDW Std Deviation 49.1 (28.0-62.0) fl RDW Coeff of Carine 15 (11.0-15.0) % Plt Count 147 L (150-400) K/uL MPV 10.00 (7.40-12.00) fL Neut % (Auto) 55.2 (48.0-80.0) % Lymph % (Auto) 33.3 (16.0-40.0) % [place] % (Auto) 7.0 (0.0-15.0) % Eos % (Auto) 4.3 (0.0-7.0) % Baso % (Auto) 0.2 (0.0-1.5) % Neut # (Auto) 2.5 (1.4-5.7) K/uL Lymph # (Auto) 1.5 (0.6-2.4) K/uL [place] # (Auto) 0.3 (0.0-0.8) K/uL Eos # (Auto) 0.2 (0.0-0.7) K/uL Baso # (Auto) 0.0 (0.0-0.1) K/uL Nucleated RBC % 0.0 /100WBC Nucleated RBCs # 0 K/uL Sodium 138 (136-145) mmol/L Potassium 3.5 (3.5-5.1) mmol/L Chloride 105 (98-107) mmol/L Carbon Dioxide 19.4 L (21.0-32.0) mmol/L BUN 37 H (7.0-18.0) mg/dL Creatinine 3.1 H (0.6-1.0) mg/dL Est Cr Clr Drug Dosing 23.45 mL/min Estimated GFR (MDRD) 16.1 ml/min Glucose 148 H (74-106) mg/dL POC Glucose 136 H (60-110) mg/dL Hemoglobin A1c (4.5-6.2) % Calcium 7.5 L (8.5-10.1) mg/dL Triglycerides 738 H (0-200) mg/dL Cholesterol 243 H (50-200) mg/dL HDL Cholesterol 22 L (40-60) mg/dL Cholesterol/HDL Ratio 11.0 H (3.3-6.0) 08/06/19 08/06/19 08/06/19 Range/Units 05:23 06:15 07:17 WBC (4.0-11.0) K/uL RBC (4.30-5.90) M/uL Hgb (12.0-16.0) g/dL Hct (36.0-46.0) % MCV (80.0-98.0) fL MCH (27.0-32.0) pg MCHC (31.0-37.0) g/dL RDW Std Deviation (28.0-62.0) fl RDW Coeff of Carine (11.0-15.0) % Plt Count (150-400) K/uL MPV (7.40-12.00) fL Neut % (Auto) (48.0-80.0) % Lymph % (Auto) (16.0-40.0) % [place] % (Auto) (0.0-15.0) % Eos % (Auto) (0.0-7.0) % Baso % (Auto) (0.0-1.5) % Neut # (Auto) (1.4-5.7) K/uL Lymph # (Auto) (0.6-2.4) K/uL [place] # (Auto) (0.0-0.8) K/uL Eos # (Auto) (0.0-0.7) K/uL Baso # (Auto) (0.0-0.1) K/uL Nucleated RBC % /100WBC Nucleated RBCs # K/uL Sodium (136-145) mmol/L Potassium (3.5-5.1) mmol/L Chloride (98-107) mmol/L Carbon Dioxide (21.0-32.0) mmol/L BUN (7.0-18.0) mg/dL Creatinine (0.6-1.0) mg/dL Est Cr Clr Drug Dosing mL/min Estimated GFR (MDRD) ml/min Glucose (74-106) mg/dL POC Glucose 139 H 132 H (60-110) mg/dL Hemoglobin A1c 12.2 H (4.5-6.2) % Calcium (8.5-10.1) mg/dL Triglycerides (0-200) mg/dL Cholesterol (50-200) mg/dL HDL Cholesterol (40-60) mg/dL Cholesterol/HDL Ratio (3.3-6.0) 08/06/19 08/06/19 08/06/19 Range/Units 07:58 09:08 10:00 WBC (4.0-11.0) K/uL RBC (4.30-5.90) M/uL Hgb (12.0-16.0) g/dL Hct (36.0-46.0) % MCV (80.0-98.0) fL MCH (27.0-32.0) pg MCHC (31.0-37.0) g/dL RDW Std Deviation (28.0-62.0) fl RDW Coeff of Carine (11.0-15.0) % Plt Count (150-400) K/uL MPV (7.40-12.00) fL Neut % (Auto) (48.0-80.0) % Lymph % (Auto) (16.0-40.0) % [place] % (Auto) (0.0-15.0) % Eos % (Auto) (0.0-7.0) % Baso % (Auto) (0.0-1.5) % Neut # (Auto) (1.4-5.7) K/uL Lymph # (Auto) (0.6-2.4) K/uL [place] # (Auto) (0.0-0.8) K/uL Eos # (Auto) (0.0-0.7) K/uL Baso # (Auto) (0.0-0.1) K/uL Nucleated RBC % /100WBC Nucleated RBCs # K/uL Sodium (136-145) mmol/L Potassium (3.5-5.1) mmol/L Chloride (98-107) mmol/L Carbon Dioxide (21.0-32.0) mmol/L BUN (7.0-18.0) mg/dL Creatinine (0.6-1.0) mg/dL Est Cr Clr Drug Dosing mL/min Estimated GFR (MDRD) ml/min Glucose (74-106) mg/dL POC Glucose 156 H 171 H 189 H (60-110) mg/dL Hemoglobin A1c (4.5-6.2) % Calcium (8.5-10.1) mg/dL Triglycerides (0-200) mg/dL Cholesterol (50-200) mg/dL HDL Cholesterol (40-60) mg/dL Cholesterol/HDL Ratio (3.3-6.0) 08/06/19 08/06/19 08/06/19 Range/Units 11:06 11:59 13:07 WBC (4.0-11.0) K/uL RBC (4.30-5.90) M/uL Hgb (12.0-16.0) g/dL Hct (36.0-46.0) % MCV (80.0-98.0) fL MCH (27.0-32.0) pg MCHC (31.0-37.0) g/dL RDW Std Deviation (28.0-62.0) fl RDW Coeff of Carine (11.0-15.0) % Plt Count (150-400) K/uL MPV (7.40-12.00) fL Neut % (Auto) (48.0-80.0) % Lymph % (Auto) (16.0-40.0) % [place] % (Auto) (0.0-15.0) % Eos % (Auto) (0.0-7.0) % Baso % (Auto) (0.0-1.5) % Neut # (Auto) (1.4-5.7) K/uL Lymph # (Auto) (0.6-2.4) K/uL [place] # (Auto) (0.0-0.8) K/uL Eos # (Auto) (0.0-0.7) K/uL Baso # (Auto) (0.0-0.1) K/uL Nucleated RBC % /100WBC Nucleated RBCs # K/uL Sodium (136-145) mmol/L Potassium (3.5-5.1) mmol/L Chloride (98-107) mmol/L Carbon Dioxide (21.0-32.0) mmol/L BUN (7.0-18.0) mg/dL Creatinine (0.6-1.0) mg/dL Est Cr Clr Drug Dosing mL/min Estimated GFR (MDRD) ml/min Glucose (74-106) mg/dL POC Glucose 208 H 179 H 237 H (60-110) mg/dL Hemoglobin A1c (4.5-6.2) % Calcium (8.5-10.1) mg/dL Triglycerides (0-200) mg/dL Cholesterol (50-200) mg/dL HDL Cholesterol (40-60) mg/dL Cholesterol/HDL Ratio (3.3-6.0) 08/06/19 08/06/19 Range/Units 14:04 17:14 WBC (4.0-11.0) K/uL RBC (4.30-5.90) M/uL Hgb (12.0-16.0) g/dL Hct (36.0-46.0) % MCV (80.0-98.0) fL MCH (27.0-32.0) pg MCHC (31.0-37.0) g/dL RDW Std Deviation (28.0-62.0) fl RDW Coeff of Carine (11.0-15.0) % Plt Count (150-400) K/uL MPV (7.40-12.00) fL Neut % (Auto) (48.0-80.0) % Lymph % (Auto) (16.0-40.0) % [place] % (Auto) (0.0-15.0) % Eos % (Auto) (0.0-7.0) % Baso % (Auto) (0.0-1.5) % Neut # (Auto) (1.4-5.7) K/uL Lymph # (Auto) (0.6-2.4) K/uL [place] # (Auto) (0.0-0.8) K/uL Eos # (Auto) (0.0-0.7) K/uL Baso # (Auto) (0.0-0.1) K/uL Nucleated RBC % /100WBC Nucleated RBCs # K/uL Sodium (136-145) mmol/L Potassium (3.5-5.1) mmol/L Chloride (98-107) mmol/L Carbon Dioxide (21.0-32.0) mmol/L BUN (7.0-18.0) mg/dL Creatinine (0.6-1.0) mg/dL Est Cr Clr Drug Dosing mL/min Estimated GFR (MDRD) ml/min Glucose (74-106) mg/dL POC Glucose 221 H 188 H (60-110) mg/dL Hemoglobin A1c (4.5-6.2) % Calcium (8.5-10.1) mg/dL Triglycerides (0-200) mg/dL Cholesterol (50-200) mg/dL HDL Cholesterol (40-60) mg/dL Cholesterol/HDL Ratio (3.3-6.0) Med Orders - Current: Current Medications Amlodipine Besylate (Norvasc) 5 mg PO DAILY [facility] Last Admin: 08/06/19 09:31 Dose: 5 mg Atorvastatin Calcium (Lipitor) 40 mg PO DAILY [facility] Last Admin: 08/06/19 09:32 Dose: 40 mg Insulin Aspart (Novolog) 0 unit SUBCUT TIDAC [facility]; Protocol Last Admin: 08/06/19 18:02 Dose: 2 unit Levothyroxine Sodium (Levothyroxine) 75 mcg PO ACBREAKFAST [facility] Last Admin: 08/06/19 06:41 Dose: 75 mcg Levothyroxine Sodium (Synthroid) 200 mcg PO ACBREAKFAST [facility] Last Admin: 08/06/19 06:41 Dose: 200 mcg Ondansetron HCl (Zofran) 4 mg IVPUSH Q4H PRN PRN Reason: Nausea/Vomiting Last Admin: 08/05/19 04:51 Dose: 4 mg Oxycodone HCl (Oxycodone) 5 mg PO Q4H PRN PRN Reason: Pain (severe 7-10) Last Admin: 08/05/19 18:07 Dose: 5 mg Fenofibrate 200 Mg 0 each PO DAILY [facility] Last Admin: 08/06/19 09:33 Dose: Not Given Discontinued Medications Sodium Chloride (Normal Saline) 1,000 mls @ 1,000 mls/hr IV .Bolus ONE Stop: 08/03/19 19:35 Last Admin: 08/03/19 19:04 Dose: 1,000 mls/hr Lactated Ringer's (Ringers, Lactated) 1,000 mls @ 100 mls/hr IV ASDIRECTED [facility] Last Admin: 08/05/19 09:35 Dose: 100 mls/hr Insulin Human Regular 100 unit (/ Sodium Chloride) 100 mls @ 1 mls/hr IV Q2HR [facility] Last Admin: 08/04/19 15:59 Dose: Not Given Insulin Human Regular 100 unit (/ Sodium Chloride) 100 mls @ 1 mls/hr IV DAILY [facility] Last Admin: 08/05/19 09:25 Dose: Not Given Insulin Human Regular 100 unit (/ Sodium Chloride) 100 mls @ 1 mls/hr IV Q24H [facility] Last Admin: 08/06/19 14:25 Dose: Not Given Insulin Aspart (Novolog) 0 unit SUBCUT TIDAC [facility]; Protocol Last Admin: 08/04/19 06:54 Dose: 6 units Insulin Detemir (Levemir) 20 unit SUBCUT ONETIME ONE Stop: 08/03/19 21:58 Last Admin: 08/03/19 22:19 Dose: Not Given Insulin Detemir (Levemir) 30 unit SUBCUT ONETIME ONE Stop: 08/03/19 22:17 Last Admin: 08/03/19 22:32 Dose: 30 units Levothyroxine Sodium (Synthroid) 100 mcg PO ACBREAKFAST [facility] Last Admin: 08/04/19 08:56 Dose: 100 mcg Morphine Sulfate (Morphine) 4 mg IVPUSH ONETIME ONE Stop: 01/12/20 16:48 Last Admin: 08/03/19 16:58 Dose: 4 mg Morphine Sulfate (Morphine) 2 mg IVPUSH ONETIME ONE Stop: 08/03/19 21:36 Last Admin: 08/03/19 21:45 Dose: 2 mg Morphine Sulfate (Morphine) 2 mg IVPUSH Q4H PRN PRN Reason: Pain (severe 7-10) Stop: 08/04/19 21:55 Last Admin: 08/04/19 05:40 Dose: 2 mg Morphine Sulfate (Morphine) 2 mg IVPUSH Q4H PRN PRN Reason: Pain (severe 7-10) Stop: 08/04/19 21:55 Last Admin: 08/04/19 19:47 Dose: 2 mg Morphine Sulfate (Morphine) 2 mg IVPUSH Q4H PRN PRN Reason: Pain Last Admin: 08/05/19 04:52 Dose: 2 mg Non-Formulary Medication (Levothyroxine) 175 mcg PO ACBREAKFAST [facility] Ondansetron HCl (Zofran) 4 mg IVPUSH ONETIME ONE Stop: 08/03/19 16:48 Last Admin: 08/03/19 16:54 Dose: 4 mg Potassium Chloride (Klor-Con M20) 40 meq PO ONETIME ONE Stop: 08/05/19 11:38 Last Admin: 08/05/19 12:02 Dose: 40 meq - Free Text/Narrative Note: I have seen and evaluated the patient with the resident. I have discussed findings and treatment plan with the resident. I agree with the assessment and plan in the following note.
[2019-08-06 16:02] VITALS: BP 120/67; PULSE 82
== END 2019-08-06 19:10 | disposition home or self-care (01) | DRG 440 ==
LOC: MW.ED 16:10 → MW.MS 19:18 → OBSVTOIN 08-04 15:11
PROVIDERS: ADMIT Student in an Organized Health Care Education/Training Program; ATTEND Student in an Organized Health Care Education/Training Program
DX: K85.90 Acute pancreatitis without necrosis or infection, unspecified (principal); N18.3 Chronic kidney disease, stage 3 (moderate); E78.1 Pure hyperglyceridemia; D64.9 Anemia, unspecified; E03.9 Hypothyroidism, unspecified; E78.5 Hyperlipidemia, unspecified; I12.9 Hypertensive chronic kidney disease with stage 1 through stage 4 chronic kidney disease, or unspecified chronic kidney disease; E11.22 Type 2 diabetes mellitus with diabetic chronic kidney disease; E78.00 Pure hypercholesterolemia, unspecified; F41.9 Anxiety disorder, unspecified; F32.9 Major depressive disorder, single episode, unspecified; Z79.4 Long term (current) use of insulin; Z79.899 Other long term (current) drug therapy
CPT/HCPCS: 36415; 74176; 74176-26; 80048; 80053; 80061; 81001; 82962; 83036; 83605; 83690; 83735; 84100; 85014; 85018; 85025; 96361; 96374; 96375; 99285-25; A9270-GY; J1815-GY; J2270; J2405; J7030; J7050; J7120

== ENCOUNTER 2020-11-23 13:10 | Emergency (ER) | payer MEDICARE, MEDICAID ==
--- NOTE | 2020-11-23 13:20 | EDM.PDOC ---
ED HPI GENERAL MEDICAL PROBLEM - General Chief Complaint: Chest Pain Stated Complaint: CHEST PAIN Time Seen by Provider: 11/23/20 13:19 Source of Information: Reports: Patient History Limitations: Reports: No Limitations - History of Present Illness INITIAL COMMENTS - FREE TEXT/NARRATIVE: HISTORY AND PHYSICAL: History of present illness: Patient is a 50-year-old female who presents to the ED today with concern of an episode of chest pain that lasted approximately 15 minutes while receiving dialysis. Patient states that this was a few hours prior to arrival to the ED and states that the episode lasted approximately 10 to 15 minutes in total. Patient states that the chest pain was sharp and centered in her chest. Patient denies any other associative symptoms. Patient states she has a history of end- stage renal disease on dialysis that she receives Tuesdays and Saturdays and has been doing this since June 2020. Patient states that she also has a history of type 2 diabetes on insulin and hypothyroidism. Patient denies any other symptoms or concerns. Patient denies fever, chills, shortness of breath, or cough. Denies headache, neck stiff ness, change in vision, syncope, or near syncope. Denies nausea, vomiting, abdominal pain, diarrhea, constipation, or dysuria. Has not noted any blood in urine or stool. Patient has been eating and drinking appropriately. Review of systems: As per history of present illness and below otherwise all systems reviewed and negative. Past medical history: As per history of present illness and as reviewed below otherwise noncontributory. Surgical history: As per history of present illness and as reviewed below otherwise noncontributory. Social history: See social history for further information Family history: As per history of present illness and as reviewed below otherwise noncontributory. Physical exam: General: Patient is alert, oriented, and in no acute distress. Patient sitting comfortably on exam table. Vitals stable and reviewed by me. HEENT: Atraumatic, normocephalic, pupils equal and reactive bilaterally, negative for conjunctival pallor or scleral icterus, mucous membranes moist, TMs normal bilaterally, throat clear, neck supple, nontender, trachea midline. No drooling or trismus noted. No meningeal signs. No hot potato voice noted. Lungs: Clear to auscultation, breath sounds equal bilaterally, chest nontender. Heart: S1S2, regular rate and rhythm without overt murmur Abdomen: Soft, nondistended, nontender. Negative for masses or hepatosplenomegaly. Negative for costovertebral tenderness. Pelvis: Stable nontender. Genitourinary: Deferred. Rectal: Deferred. Skin: Intact, warm, dry. No lesions or rashes noted. Extremities: Atraumatic, negative for cords or calf pain. Neurovascular unremarkable. Neuro: Awake, alert, oriented. Cranial nerves II through XII unremarkable. Cerebellum unremarkable. Motor and sensory unremarkable throughout. Exam nonfocal. Notes: Upon arrival to the ED, patient is vitally stable and well-appearing on exam. She is not currently having any chest pain and states that her last chest pain was a few hours prior to arrival to the ED. CBC is unremarkable. CMP does show a low sodium of 128. Elevated BUN of 27 and creatinine 2.4, glu 336. Otherwise CMP unremarkable. Troponin negative. Chest x-ray does show hyperinflation and chronic interstitial changes with mild pulmonary vascular congestion. Discussed the electrolyte derangements today on her lab work and patient states that this is not unusual for her following dialysis. Upon reevaluation of patient, she remained chest pain-free throughout stay in ED and vitally stable. Admission for observation was offered to patient but he declines at this time. Encourage patient to stay to repeat troponin but declines as she wants to go home. All risks versus benefits discussed with patient and she would like to leave the ED without repeating troponin today. Strict return precautions thoroughly discussed with patient. 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 Voices understanding and is agreeable to plan of care. Denies any further questions or concerns at this time. Diagnostics: CBC, CMP, UA, EKG, chest x-ray, troponin Therapeutics: Patient states she took aspirin full dose earlier today Prescription: None Impression: Atypical chest pain End stage kidney disease, on dialysis Plan: You evaluate today on an emergent basis. At this time it is extremely important that you follow-up with your primary care physician within 1 to [address] you on a cardiology follow-up list. If you develop any worsening chest pain, shortness of breath, passing out please return to the emergency department. Definitive disposition and diagnosis as appropriate pending reevaluation and review of above. - Related Data Allergies Allergy/AdvReac Type Severity Reaction Status Date / Time No Known Allergies Allergy Verified 11/23/20 13:16 Home Meds: Home Meds Levothyroxine 275 mcg PO ACBREAKFAST 09/06/16 [History] Fenofibrate Nanocrystallized [Tricor] 200 mg PO DAILY 08/04/19 [History] Insulin NPH/Insulin Reg,Human [Novolin 70-30] 100 unit SUBCUT BID 08/04/19 [History] amLODIPine [Norvasc] 5 mg PO BEDTIME 08/04/19 [History] atorvaSTATin [Lipitor] 40 mg PO DAILY 08/04/19 [History] glipiZIDE [Glucotrol] 5 mg PO BEDTIME 08/04/19 [History] glipiZIDE [Glucotrol] 10 mg PO QAM 08/04/19 [History] Past Medical History HEENT History: Reports: Impaired Vision Cardiovascular History: Reports: High Cholesterol, Hypertension, Other (See Below) Other Cardiovascular History: SVT Gastrointestinal History: Reports: Diverticulosis, Pancreatitis Genitourinary History: Reports: Renal Disease, Other (See Below) Other Genitourinary History: 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 [employer] History: Reports: Musculoskeletal History: Reports: Arthritis Neurological History: Reports: Other (See Below) Other Neuro History: on and off headaches Psychiatric History: Reports: Anxiety, Depression Other Psychiatric History: January 01 2016 Endocrine/Metabolic History: Reports: Diabetes, Type II Hematologic History: Reports: Anemia - Infectious Disease History Infectious Disease History: Reports: Chicken Pox - Past Surgical History Female Surgical History: Reports: Section, Other (See Below) Social & Family History - Family History Family Medical History: No Pertinent Family History HEENT: Reports: Impaired Vision Cardiac: Reports: CAD, Hypertension OBGYN: Reports: Endocrine/Metabolic: Reports: Diabetes, type II Oncologic: Reports: Other (See Below) Other Oncologic Family History: cant remember what type of cancer - Caffeine Use Caffeine Use: Reports: Coffee, Tea ED ROS GENERAL - Review of Systems Review Of Systems: Comprehensive ROS is negative, except as noted in HPI. ED EXAM, GENERAL - Physical Exam Exam: See Below (See dictation) Course - Vital Signs Last Recorded V/S: Last Vital Signs Temp 96.9 F 11/23/20 13:17 Pulse 81 11/23/20 13:17 Resp 20 11/23/20 13:17 BP 128/81 05/04/21 13:17 Pulse Ox 100 11/23/20 13:17 - Orders/Labs/Meds Labs: Laboratory Tests 11/23/20 11/23/20 Range/Units 13:48 13:48 WBC 6.69 (4.0-11.0) K/uL RBC 4.00 L (4.30-5.90) M/uL Hgb 12.5 (12.0-16.0) g/dL Hct 36.0 (36.0-46.0) % MCV 90.0 (80.0-98.0) fL MCH 31.3 (27.0-32.0) pg MCHC 34.7 (31.0-37.0) g/dL RDW Std Deviation 49.0 (28.0-62.0) fl RDW Coeff of Carine 15 (11.0-15.0) % Plt Count 171 (150-400) K/uL MPV 10.90 (7.40-12.00) fL Neut % (Auto) 58.7 (48.0-80.0) % Lymph % (Auto) 33.8 (16.0-40.0) % Iron % (Auto) 4.9 (0.0-15.0) % Eos % (Auto) 2.2 (0.0-7.0) % Baso % (Auto) 0.4 (0.0-1.5) % Neut # (Auto) 3.9 (1.4-5.7) K/uL Lymph # (Auto) 2.3 (0.6-2.4) K/uL Iron # (Auto) 0.3 (0.0-0.8) K/uL Eos # (Auto) 0.2 (0.0-0.7) K/uL Baso # (Auto) 0.0 (0.0-0.1) K/uL Nucleated RBC % 0.0 /100WBC Nucleated RBCs # 0 K/uL Sodium 128 L (136-145) mmol/L Potassium 3.9 (3.5-5.1) mmol/L Chloride 94 L (98-107) mmol/L Carbon Dioxide 23.0 (21.0-32.0) mmol/L BUN 27 H (7.0-18.0) mg/dL Creatinine 2.4 H (0.6-1.0) mg/dL Est Cr Clr Drug Dosing 29.96 mL/min Estimated GFR (MDRD) 21.5 ml/min Glucose 336 H (74-106) mg/dL Calcium 9.8 (8.5-10.1) mg/dL Total Bilirubin 0.5 (0.2-1.0) mg/dL AST 22 (15-37) IU/L ALT 34 (14-63) IU/L Alkaline Phosphatase 104 (46-116) U/L Troponin I < 0.050 (0.000-0.056) ng/mL Total Protein 8.0 (6.4-8.2) g/dL Albumin 3.5 (3.4-5.0) g/dL Globulin 4.5 H (2.6-4.0) g/dL Albumin/Globulin Ratio 0.8 L (0.9-1.6) Departure - Departure Time of Disposition: 20:34 Disposition: Home, Self-Care 01 Clinical Impression: Atypical chest pain - Discharge Information Referrals: Haris Plaza MD [Primary Care Provider] - Forms: ED Department Discharge Additional Instructions: You evaluate today on an emergent basis. At this time it is extremely important that you follow-up with your primary care physician within 1 to [address] you on a cardiology follow-up list. If you develop any worsening chest pain, shortness of breath, passing out [facility] [address] [place] [address] [place] [id number] The patient is informed of any results of their evaluation and diagnostic workup and all questions are answered. They are given discharge instructions and return precautions. The patient is stable for discharge. The patient states they understand and agree with the plan and that they will return if their symptoms get worse or if they have any new concerns. The following information is given to patients seen in the emergency department who are being discharged to home. This information is to outline your options for follow-up care. We provide all patients seen in our emergency department with a follow-up referral. The need for follow-up, as well as the timing and circumstances, are variable de pending upon the specifics of your emergency department visit. If you don't have a primary care physician on staff, we will provide you with a referral. We always advise you to contact your personal physician following an emergency department visit to inform them of the circumstance of the visit and for follow-up with them and/or the need for any referrals to a consulting specialist. The emergency department will also refer you to a specialist when appropriate. This referral assures that you have the opportunity for follow-up care with a specialist. All of these measure are taken in an effort to provide you with optimal care, which includes your follow-up. Under all circumstances we always encourage you to contact your private physician who remains a resource for coordinating your care. When calling for follow-up care, please make the office aware that this follow-up is from your recent emergency room visit. If for any reason you are refused follow-up, please contact the [facility] Emergency Department at and asked to speak to the emergency department charge nurse. Sepsis Event Note (ED) - Focused Exam Vital Signs: Vital Signs Temp Pulse Resp BP Pulse Ox 11/23/20 13:17 96.9 F 81 20 128/81 100
[2020-11-23 13:44] VITALS: BP 128/81; PULSE 81
[2020-11-23 14:37] LABS: BLOOD UREA NITROGEN,BUN 27 mg/dL (7.0-18.0); CHLORIDE,CL 94 mmol/L (98-107); GLUCOSE RANDOM 336 mg/dL (74-106); POTASSIUM,K 3.9 mmol/L (3.5-5.1); SODIUM,NA 128 mmol/L (136-145)
--- NOTE | 2020-11-23 14:41 | CR ---
Indication: Shortness of breath Comparison: Single-view chest March 27, 2019 Technique: Single AP view chest Findings: There is hyperinflation and chronic interstitial change. There is a right-sided Port-A-Cath in satisfactory position. There is mild prominence of the interstitial markings likely representing mild pulmonary vascular congestion. There is no dense consolidation, effusion or pneumothorax. The cardiac silhouette is mildly prominent. The bony thorax is grossly intact. Impression: Hyperinflation and chronic interstitial changes with mild pulmonary vascular congestion. Dictated by John Ritter MD @ 11/23/2020 2:40:[address] John Ritter @ Nov 23 2020 2:40PM
--- NOTE | 2020-11-24 18:34 | PCM.EKG ---
#1 Interpretation EKG Date: 11/23/20 Time: 13:12 Rhythm: NSR Rate (Beats/Min): 77 [place]: Normal P-Wave: Present QRS: Normal ST-T: Normal QT: Normal Comparison: No Change (03/27/19) EKG Interpretation Comments: Sinus Rhythm
== END 2020-11-23 14:56 | disposition home or self-care (01) ==
LOC: MW.ED 13:10
DX: R07.89 Other chest pain (principal); I12.0 Hypertensive chronic kidney disease with stage 5 chronic kidney disease or end stage renal disease; E11.22 Type 2 diabetes mellitus with diabetic chronic kidney disease; N18.6 End stage renal disease; E78.00 Pure hypercholesterolemia, unspecified; Z99.2 Dependence on renal dialysis
CPT/HCPCS: 36415; 71045; 71045-26; 80053; 84484; 85025; 93005; 99283; 99285-25

== ENCOUNTER 2021-07-26 10:04 | Emergency (ER) | payer MEDICARE, MEDICAID ==
--- NOTE | 2021-07-26 11:40 | EDM.PDOC ---
ED HPI GENERAL MEDICAL PROBLEM - General Chief Complaint: General Stated Complaint: DIALYSIS WANTS HER TESTED Time Seen by Provider: 07/26/21 10:30 Source of Information: Reports: Patient History Limitations: Reports: No Limitations - History of Present Illness INITIAL COMMENTS - FREE TEXT/NARRATIVE: Presents for a Covid test. This patient is a dialysis patient who is scheduled for dialysis at 1130 this morning. She has had a cough, vomiting and feeling warm for 5 days. She has not vomited or been feverish today. Denies dysuria, diarrhea, sore throat, shortness of breath, chest pain, abdominal pain. She was told by the dialysis unit to present to the emergency room for a Covid test before coming to her scheduled dialysis appointment this morning. The patient states she has end-stage renal disease due to diabetes. She also has hypertension but is otherwise healthy. She had her first Covid vaccine. She did have her seasonal flu shot. Headache Pain Score (Numeric/FACES): 6 - Related Data Allergies Allergy/AdvReac Type Severity Reaction Status Date / Time No Known Allergies Allergy Verified 07/26/21 10:23 Home Meds: Home Meds Levothyroxine 275 mcg PO ACBREAKFAST 09/06/16 [History] atorvaSTATin [Lipitor] 40 mg PO DAILY 08/04/19 [History] Insulin Lispro [Admelog] 07/26/21 [History] Liraglutide [Victoza 2-Epi] 07/26/21 [History] Past Medical History HEENT History: Reports: Impaired Vision Cardiovascular History: Reports: High Cholesterol, Hypertension, Other (See Below) Other Cardiovascular History: SVT Gastrointestinal History: Reports: Diverticulosis, Pancreatitis Genitourinary History: Reports: Renal Disease, Other (See Below) Other Genitourinary History: 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 [employer] History: Reports: Musculoskeletal History: Reports: Arthritis Neurological History: Reports: Other (See Below) Other Neuro History: on and off headaches Psychiatric History: Reports: Anxiety, Depression Other Psychiatric History: January 01 2016 Endocrine/Metabolic History: Reports: Diabetes, Type II Hematologic History: Reports: Anemia Immunologic History: Reports: None Oncologic (Cancer) History: Reports: None Dermatologic History: Reports: None - Infectious Disease History Infectious Disease History: Reports: Chicken Pox - Past Surgical History Head Surgeries/Procedures: Reports: None Cardiovascular Surgical History: Reports: None GI Surgical History: Reports: Cholecystectomy Female Surgical History: Reports: Section, Other (See Below) Other Female Surgeries/Procedures: uterine ablasion Neurological Surgical History: Reports: None Social & Family History - Family History Family Medical History: No Pertinent Family History HEENT: Reports: Impaired Vision Cardiac: Reports: CAD, Hypertension OBGYN: Reports: Endocrine/Metabolic: Reports: Diabetes, type II Oncologic: Reports: Other (See Below) Other Oncologic Family History: cant remember what type of cancer - Caffeine Use Caffeine Use: Reports: Tea - Recreational Drug Use Recreational Drug Use: No ED ROS GENERAL - Review of Systems Review Of Systems: Comprehensive ROS is negative, except as noted in HPI. ED EXAM, GENERAL - Physical Exam Exam: See Below Exam Limited By: No Limitations General Appearance: Alert, No Apparent Distress Ears: Normal External Exam, Normal TMs Nose: Normal Inspection Throat/Mouth: Normal Inspection Head: Atraumatic, Normocephalic Neck: Normal Inspection Respiratory/Chest: No Respiratory Distress, Lungs Clear, Normal Breath Sounds Cardiovascular: Normal Peripheral Pulses, Regular Rate, Rhythm Rectal (Female) Exam: Normal Exam Back Exam: Normal Inspection Extremities: Normal Inspection, Normal Range of Motion Neurological: Alert, Oriented, Normal Cognition Psychiatric: Normal Affect, Normal Mood Skin Exam: Warm, Dry, Intact, Normal Color, No Rash Lymphatic: No Adenopathy Course - Vital Signs Last Recorded V/S: Last Vital Signs Temp 37.0 C 07/26/21 10:26 Pulse 96 07/26/21 11:29 Resp 16 07/26/21 10:26 BP 117/75 07/26/21 11:29 Pulse Ox 98 07/26/21 11:29 - Orders/Labs/Meds Orders: Active Orders 24 hr Category Date Time Status BMP [BASIC METABOLIC PANEL,BMP] [CHEM] Stat Lab 07/26/21 10:50 Ordered CBC WITH AUTO DIFF [HEME] Stat Lab 07/26/21 10:50 Ordered COVID-19/FLU A+B [MOLEC] Stat Lab 07/26/21 10:48 Ordered Departure - Departure Time of Disposition: 12:01 Disposition: Home, Self-Care 01 Condition: Good Clinical Impression: COVID-19 - Discharge Information Referrals: Haris Plaza MD [Primary Care Provider] - Additional Instructions: The following information is given to patients seen in the emergency department who are being discharged to home. This information is to outline your options for follow-up care. We provide all patients seen in our emergency department wit h a follow-up referral. The need for follow-up, as well as the timing and circumstances, are variable depending upon the specifics of your emergency department visit. If you don't have a primary care physician on staff, we will provide you with a referral. We always advise you to contact your personal physician following an emergency department visit to inform them of the circumstance of the visit and for follow-up with them and/or the need for any referrals to a consulting specialist. The emergency department will also refer you to a specialist when appropriate. This referral assures that you have the opportunity for follow-up care with a specialist. All of these measure are taken in an effort to provide you with optimal care, which includes your follow-up. Under all circumstances we always encourage you to contact your private physician who remains a resource for coordinating your care. When calling for follow-up care, please make the office aware that this follow-up is from your recent emergency room visit. If for any reason you are refused follow-up, please contact the [facility] Emergency Department at and asked to speak to the emergency department charge nurse. 1. Proceed directly to dialysis, isolation. 2. Your dialysis providers will arrange for monoclonal antibody infusion after your dialysis treatment. 3. Return promptly for breathing problems. Sepsis Event Note (ED) - Evaluation Sepsis Screening Result: No Definite Risk - Focused Exam Vital Signs: Vital Signs Temp Pulse Resp BP Pulse Ox 07/26/21 11:29 96 117/75 98 07/26/21 10:26 37.0 C 93 16 132/82 97 - My Orders Last 24 Hours: My Active Orders 07/26/21 10:48 COVID-19/FLU A+B [MOLEC] Stat 07/26/21 10:50 BMP [BASIC METABOLIC PANEL,BMP] [CHEM] Stat CBC WITH AUTO DIFF [HEME] Stat - Assessment/Plan Last 24 Hours: My Active Orders 07/26/21 10:48 COVID-19/FLU A+B [MOLEC] Stat 07/26/21 10:50 BMP [BASIC METABOLIC PANEL,BMP] [CHEM] Stat CBC WITH AUTO DIFF [HEME] Stat
[2021-07-26 11:48] LABS: CORONAVIRUS COVID-19 NAA POSITIVE (NEGATIVE); INFLUENZA A NAA NEGATIVE (NEGATIVE); INFLUENZA B NAA NEGATIVE (NEGATIVE)
[2021-07-26 12:05] LABS: CARBON DIOXIDE,CO2 23.8 mmol/L (21.0-32.0); POTASSIUM,K 4.5 mmol/L (3.5-5.1)
[2021-07-26 12:17] VITALS: BP 125/81; PULSE 95
== END 2021-07-26 12:13 | disposition home or self-care (01) ==
LOC: MW.ED 10:04
DX: U07.1 COVID-19 (principal); I10 Essential (primary) hypertension; E78.00 Pure hypercholesterolemia, unspecified; E11.9 Type 2 diabetes mellitus without complications; Z79.4 Long term (current) use of insulin; Z79.899 Other long term (current) drug therapy
CPT/HCPCS: 0240U; 36415; 80048; 85025; 99282

== ENCOUNTER 2021-11-21 09:21 | Emergency (ER) | payer MEDICARE, MEDICAID ==
[2021-11-21] MEDS ORDERED: Sodium Chloride 0.9% 2.5 ML Syringe FLUSH PRN (09:41)
[2021-11-21] MEDS ORDERED: Ondansetron 4 MG/2 ML SDV IVPUSH ONE (09:41)
[2021-11-21] MEDS ORDERED: Sodium Chloride 0.9% 10 ML Syringe FLUSH PRN (09:41)
[2021-11-21] MEDS ORDERED: fentaNYL 50 MCG/ML SDV IVPUSH ONE (09:41)
[2021-11-21 10:56] LABS: CARBON DIOXIDE,CO2 20.6 mmol/L (21.0-32.0); POTASSIUM,K 4.3 mmol/L (3.5-5.1)
[2021-11-21] MEDS ORDERED: Sodium Chloride 0.9% 1,000 ML IV ONE (12:38)
[2021-11-21 15:17] VITALS: BP 97/53; PULSE 87
== END 2021-11-21 15:00 | disposition home or self-care (01) ==
LOC: MW.ED 09:21
DX: R10.9 Unspecified abdominal pain (principal); N18.6 End stage renal disease; K86.1 Other chronic pancreatitis; R79.89 Other specified abnormal findings of blood chemistry; E78.00 Pure hypercholesterolemia, unspecified; I10 Essential (primary) hypertension; E11.9 Type 2 diabetes mellitus without complications; Z79.4 Long term (current) use of insulin; Z99.2 Dependence on renal dialysis; Z79.899 Other long term (current) drug therapy
CPT/HCPCS: 36415; 74176; 80053; 80074; 83690; 83735; 84484; 85025; 85610; 85730; 93005; 96374; 96375; 99285; J2405; J3010; J3490; J7030

== ENCOUNTER 2021-12-16 15:35 | Emergency (ER) | payer MEDICARE, MEDICAID ==
[2021-12-16] MEDS ORDERED: Sodium Chloride 0.9% 10 ML Syringe FLUSH PRN (16:27)
[2021-12-16] MEDS ORDERED: Sodium Chloride 0.9% 2.5 ML Syringe FLUSH PRN (16:27)
[2021-12-16 17:16] LABS: CARBON DIOXIDE,CO2 23.4 mmol/L (21.0-32.0)
[2021-12-16] MEDS ORDERED: Magnesium Oxide 400 MG Tab PO ONE (17:40)
[2021-12-16 18:16] VITALS: BP 128/79; PULSE 74
== END 2021-12-16 18:16 | disposition home or self-care (01) ==
LOC: MW.ED 15:35
DX: R55 Syncope and collapse (principal); E83.42 Hypomagnesemia; E87.1 Hypo-osmolality and hyponatremia; E11.22 Type 2 diabetes mellitus with diabetic chronic kidney disease; I12.9 Hypertensive chronic kidney disease with stage 1 through stage 4 chronic kidney disease, or unspecified chronic kidney disease; N18.9 Chronic kidney disease, unspecified; D63.1 Anemia in chronic kidney disease; Z79.899 Other long term (current) drug therapy; Z79.4 Long term (current) use of insulin; Z86.16 Personal history of COVID-19; Z90.49 Acquired absence of other specified parts of digestive tract
CPT/HCPCS: 36415; 71045; 80053; 83735; 84443; 84484; 85025; 93005; 99284; A9270; J3490

== ENCOUNTER 2022-06-26 07:59 | Day surgery (SDC) | payer MEDICARE, MEDICAID ==
[~2022-06-26 07:59] MED LIST: Dexmedetomidine 200 MCG/2 ML SDV ONE; Lactated Ringers 1,000 ML IV SCH; Propofol 200 MG/20 ML SDV ONE; Water For Injection, Sterile 20 ML ONE; fentaNYL 100 MCG/2 ML SDV ONE
[2022-06-26] MEDS ORDERED: Albuterol 0.083% 2.5 MG/3 ML Neb Soln NEB PRN (08:17)
[2022-06-26] MEDS ORDERED: Naloxone 0.4 MG/ML SDV IVPUSH PRN (08:17)
[2022-06-26] MEDS ORDERED: Morphine 2 MG/ML SYRINGE IVPUSH PRN (08:17)
[2022-06-26] MEDS ORDERED: HYDROmorphone 1 MG/ML Syringe IVPUSH PRN (08:17)
[2022-06-26] MEDS ORDERED: Metoclopramide 10 MG/2 ML SDV IVPUSH PRN (08:17)
[2022-06-26] MEDS ORDERED: Ondansetron 4 MG/2 ML SDV IVPUSH PRN (08:17)
[2022-06-26] MEDS ORDERED: fentaNYL 50 MCG/ML SDV IVPUSH PRN (08:17)
[2022-06-26] MEDS ORDERED: Bupivacaine 0.5% 30 ML SDV ONE (08:26)
[2022-06-26] MEDS ORDERED: Lidocaine 1% 20 ML MDV ONE (08:27)
[2022-06-26] MEDS ORDERED: Sodium Chloride 0.9% 1,000 ML IV SCH (08:30)
[2022-06-26] MEDS ORDERED: Sodium Chloride 0.9% 500 ML IV SCH (09:00)
[2022-06-26] MEDS ORDERED: Acetaminophen/HYDROcodone 325-10 MG Tab PO PRN (09:41)
[2022-06-26] MEDS ORDERED: Lactated Ringers 1,000 ML IV SCH (09:45)
[2022-06-26 10:38] VITALS: BP 123/71; PULSE 67
== END 2022-06-26 10:20 | disposition home or self-care (01) ==
LOC: MW.SDS 07:59
PROVIDERS: ATTEND Surgery
DX: Z49.02 Encounter for fitting and adjustment of peritoneal dialysis catheter (principal); I12.9 Hypertensive chronic kidney disease with stage 1 through stage 4 chronic kidney disease, or unspecified chronic kidney disease; N18.30 Chronic kidney disease, stage 3 unspecified; Z99.2 Dependence on renal dialysis; E11.9 Type 2 diabetes mellitus without complications; I10 Essential (primary) hypertension; E03.9 Hypothyroidism, unspecified; E78.5 Hyperlipidemia, unspecified; M19.90 Unspecified osteoarthritis, unspecified site; Z79.899 Other long term (current) drug therapy; Z87.891 Personal history of nicotine dependence; Z79.890 Hormone replacement therapy; Z90.49 Acquired absence of other specified parts of digestive tract; Z98.890 Other specified postprocedural states
CPT/HCPCS: 49422; 82947; J2704; J3010; J3490; J7040; 36589